=== PATIENT | female | born 1955 | race Caucasian/White ===

== ENCOUNTER 2024-07-01 13:47 | Emergency (ER) | payer MEDICARE, BC, SELFPAY ==
--- NOTE | ~2024-07-01 | CT_ITS ---
CLINICAL HISTORY: fall CT CERVICAL SPINE WITHOUT CONTRAST Comparison: None Findings: Minimal subluxation C4-5, likely degenerative. Otherwise, satisfactory alignment. Moderate disc space narrowing with endplate spurring C6-7. Mild disc degenerative changes in the remaining levels. Moderate multilevel facet degenerative changes. No acute fractures or dislocations. Please see separate report for CT head/brain. Nodular thyroid gland. Biapical scarring. No pneumothorax. IMPRESSION: No acute fracture in the cervical spine. This document has been electronically signed by: Melony Mueller DO on 07/01/2024 18:40:57
--- NOTE | ~2024-07-01 | XR_ITS ---
CLINICAL HISTORY: fall 1 view pelvis Comparison: None Findings: No acute fracture or dislocation. Differential lucency in the left intertrochanteric region is due to a skin fold. Mild narrowing of the bilateral acetabulofemoral joints. No femoral head osteonecrosis. Heterogeneous calcification in the pelvis may represent a small calcified uterine fibroid. IMPRESSION: No acute fracture or dislocation. This document has been electronically signed by: Melony Mueller DO on 07/01/2024 18:25:17
--- NOTE | ~2024-07-01 | XR_ITS ---
CLINICAL HISTORY: swelling, fall 3 view right ankle Comparison: None Findings: No acute fractures. Ankle mortise intact. No significant loss of joint space, osteophytes, or erosions. No ankle effusion. No radiopaque foreign body. IMPRESSION: No acute fracture or dislocation. This document has been electronically signed by: Melony Mueller DO on 07/01/2024 18:33:04
--- NOTE | ~2024-07-01 | XR_ITS ---
CLINICAL HISTORY: fall down stairs 4 view right knee Comparison: None Findings: There is a comminuted fracture in the upper to midpole of the patella with no significant displacement or posterior intra-articular extension. No dislocation. There are mild tricompartmental degenerative changes with no significant degenerative spurring. There is a suprapatellar joint effusion that measures 1.8 cm AP by 4.3 cm in length. No radiopaque foreign body. IMPRESSION: 1. Nondisplaced comminuted fracture in the patella associated with a small joint effusion. 2. No dislocation. This document has been electronically signed by: Melony Mueller DO on 07/01/2024 14:37:03
--- NOTE | ~2024-07-01 | XR_ITS ---
CLINICAL HISTORY: fall down stairs 3 view left elbow Comparison: None Findings: No acute fractures. Normal alignment. Very mild degenerative changes in the ulnohumeral joint. No joint effusion. No radiopaque foreign body. Mild triceps tendon enthesopathy with soft tissue swelling. IMPRESSION: No acute fracture or dislocation. This document has been electronically signed by: Melony Mueller DO on 07/01/2024 14:37:57
--- NOTE | ~2024-07-01 | CT_ITS ---
CLINICAL HISTORY: fall CT HEAD WITHOUT CONTRAST Comparison: None Findings: No acute intracranial hemorrhage, extra-axial fluid collection, hydrocephalus or midline shift. Age appropriate generalized parenchymal atrophy. There are periventricular and subcortical white matter hypodensities which are nonspecific but most likely related to microangiopathic gliosis. Nonspecific opacification of several bilateral ethmoid air cells. No frontal, maxillary or sphenoid air-fluid level. No mastoid fluid. Visualized orbits: No acute abnormalities. Bilateral aphakia. There is no acute fracture. IMPRESSION: 1. No acute intracranial hemorrhage. This document has been electronically signed by: Melony Mueller DO on 07/01/2024 18:36:52
--- NOTE | ~2024-07-01 | XR_ITS ---
CLINICAL HISTORY: fall 2 view right femur Comparison: None Findings: 4 films were obtained. No fractures or dislocations. [id number] knee effusion. No radiopaque foreign body. Several calcified injection granulomas. IMPRESSION: 1. No acute fracture in the right femur. 2. Known right patellar fracture. This document has been electronically signed by: Melony Mueller DO on 07/01/2024 18:27:19
[2024-07-01 13:52] VITALS: BP 153/69; PULSE 59; RESP 16; TEMP 36.6; O2SAT 100; BMI 24.0
--- NOTE | 2024-07-01 13:53 | ED_ITS ---
HPI - Fall General Chief Complaint: Fall Stated Complaint: fell down stairs Time Seen by Provider: 07/01/24 15:48 Source: patient, family and RN notes reviewed Mode of arrival: ambulatory Limitations: no limitations History of Present Illness ED Provider: Vivian Finney PA-C HPI Narrative: This is a 69-year-old female, with a history of hypertension and hyperlipidemia, who presents emergency department with complaints of right knee pain, and left elbow pain status post mechanical fall which occurred this morning. Patient states that she was rushing down the steps, and missed a stair and ultimately fell onto her right knee and left elbow onto hard tile floor. She denies hitting her head or LOC. She does admit feeling dizzy immediately following the incident which lasted for several minutes and resolved after drinking water. She did not lose consciousness. She was not dizzy prior to the fall. No chest pain or shortness of breath. No current dizziness, headaches, blurred vision, chest pain, shortness of breath, abdominal pain, nausea, vomiting or diarrhea. She reports she not been able to bear weight on her right leg secondary to the pain. This fall was unwitnessed, states that her was around the corner, and heard the sound, upon arrival, she was alert and oriented. No loss of consciousness. No other complaints or concerns at this time. MD complaint: fall Fall from: down stairs (#) (2) Fall witnessed: no Place fall occurred: home Loss of consciousness: none Prolonged down time: minute(s) Symptoms prior to fall: none Context: tripped/slipped Location of injury - extremities: left: elbow and right: knee Severity: moderate Quality: aching Associated symptoms (after fall): denies Related Data Previous Rx's ?Medication ?Instructions ?Recorded acetaminophen 500 mg tablet 1,000 mg (2 x 500 mg) PO Q8H #30 07/01/24 (Tylenol Extra Strength) tabs ibuprofen 600 mg tablet 600 mg PO Q6H PRN pain #30 tabs 07/01/24 oxycodone 5 mg tablet 5 mg PO Q6H PRN severe pain (scale 07/01/24 score 7-10) #10 tabs Allergies Allergy/AdvReac Type Severity Reaction Status Date / Time No Known Allergies Allergy Verified 07/01/24 13:56 Review of Systems Review of Systems: Yes all other systems are reviewed and are negative Constitutional: Constitutional: Reports as per [facility] Social History Social History Unable to assess alcohol history related to: Unknown Use of substances other than those prescribed or required for medical reasons: Unknown Advance Directives: No Advance Directives Information Provided: No Do you have a plan to hurt others: No Plan Physical Exam Vital Signs: Vital Signs: Last Vital Signs Temp 98 F 07/01/24 13:52 Pulse 59 07/01/24 13:52 Resp 16 07/01/24 13:52 BP 153/69 H 07/01/24 13:52 Pulse Ox 100 07/01/24 13:52 O2 Del Method Room Air 07/01/24 13:52 BMI result Body Mass Index 24.0 Const: General: cooperative, comfortable and no acute distress Orientation/consciousness: patient oriented x3 Limitations: no limitations HEENT: Head: Yes normal to inspection, Yes normocephalic and Yes atraumatic Ears: hearing grossly normal bilaterally General nose exam: Normal external nose present Face and sinus: Yes normal facial exam Mouth: Normal oral and palatal mucosa present, oropharynx normal and moist mucous membranes Throat: Yes posterior oropharynx normal Eyes: General: appearance normal, both eyes and all related structures Eyelids: Yes eyelids normal Conjunctivae: conjunctivae normal Sclerae: sclerae normal Pupils: Equal, round and reactive pupils present EOM: EOMs intact bilaterally Neck: Other: No midline spine tenderness on examination. No bony step-off or deformity. No cervical paraspinous muscles spasms. Neck: Yes normal visual inspection, Yes full ROM and Yes no lymphadenopathy Lymphatic: no lymphadenopathy noted Chest: Chest palpation & inspection: normal inspection of the chest Resp: Effort & Inspection: normal respiratory effort and able to speak in complete sentences Auscultation: clear to auscultation bilaterally, no crackles, no rales, no rhonchi and no wheezes Cardio: Rate: regular rate Rhythm: regular rhythm Heart sounds: S1 normal heart sound present and S2 normal heart sound present GI: Inspection: Yes normal to inspection Skin: General skin exam: no rashes or lesions noted Trauma: no lacerations or abrasions Wounds: no wounds Neuro: General: patient oriented x3 and moves all extremities Cranial nerves: Yes Equal, round and reactive pupils present Extrem: Other: Right knee, with moderate joint effusion noted, with exquisite tenderness palpation along the patella, ? Palpable deformity at the quadriceps tendon insertion site, tender in this region, unable to perform straight leg raise. Strong DP pulse. She does have moderate hematoma noted to the lateral aspect of the right dorsum of the foot, nontender. Unable to flex and extend at the right knee. No calf pain. Left elbow, with full range of motion, no obvious bony deformity or swelling, she does have tenderness palpation along epicondyle. No bony step-off or deformity. No open wounds or lacerations. Hip nontender, femur nontender, no open wounds or lacerations. General: Yes normal to inspection Right upper extremity: normal to inspection Left upper extremity: normal to inspection Left lower extremity: normal to inspection Course Course Course Narrative: This is a Rapid Medical Exam performed in triage by Nicole Licona PA-C. Full HPI, ROS and PE to be performed by primary ED provider. 69 yo F presenting to the ED c/o R knee & L elbow pain s/p mechanical slip & fall down a few stairs [employer]. States missed a step. denies head trauma, LOC, or AC use. ambulated w/difficulty PE: in wheelchair, + right knee with appreciable swelling and tenderness. Neurovascularly intact distally. Left elbow with mild tenderness. No deformity. Plan: XRs Reevaluation(s) Reevaluation #1: C-spine CT scan revealing no acute fracture of the cervical spine however there is minimal subluxation in the C4-C5, radiology reporting likely degenerative, she also has moderate disc space narrowing with end plate spurring at C6-C7, with mild disc degenerative changes in the remaining levels. I discussed this overall workup with my attending physician. He recommends reaching out to [facility] for neurosurgeon consult. Patient has no neck pain, no numbness or tingling, she is feeling well. We will continue to closely monitor. Contacted [facility] for further discussion. Time: 19:07 Reevaluation #2: Discussed case with neurosurgical PALuis Daniel. Discussed case, he also reviewed the images. This is likely degenerative given that patient is asymptomatic, not having any numbness tingling burning, or pain and neck. This does not require any follow-up or management. Discussed overall workup with patient and at bedside. Pain is well controlled however given car ride home, will medicate with oxycodone, she was placed in a knee immobilizer. Given strict return precautions. Patient understands and agrees with plan. Patient will follow-up with orthopedist on Wednesday. Patient stable for discharge. Time: 19:26 Medications Administered Discontinued Medications Generic Name Dose Route Start Last Admin Trade Name Robert PRN Reason Stop Dose Admin Oxycodone HCl 5 mg 07/01/24 16:08 07/01/24 16:22 Oxycodone Hcl Immed Release 5 Mg Tablet PO 07/01/24 16:09 5 mg ONCE ONE Administration Medical Decision Making Medical Decision Making [facility] Narrative: This is a 69-year-old female, with a history of hyperlipidemia, and hypertension, who presents emergency department with complaints of right knee pain, and left elbow pain status post mechanical fall which occurred this afternoon. On arrival, blood pressure mildly elevated 153/69, all other vital signs within normal limits. She is speaking in full sentences under no acute distress. No neurologic deficits on examination. She is not on anticoagulation. No LOC. No head strike. Right knee with moderate edema, with exquisite tenderness along the patella, question of palpable deformity at the insertion site of the quadriceps tendon, unable to straight leg raise. X-ray was performed prior to my assessment, she does have a nondisplaced patellar fracture. Left elbow unremarkable. X-ray no fracture seen. I discussed this case with orthopedic PA, Delroy Esteves, who came and assessed patient. He consulted with Dr. Monaco, who recommends placing patient in knee immobilizer, and close follow-up on Wednesday. X-rays of the pelvis, right ankle, right femur also ordered due to fall, she has no tenderness along these regions however given patellar fracture, will take to rule out any bony abnormalities. Given fall and patient is over the age of 65, will obtain CT head and neck to rule out any intracranial process. Differential Diagnosis Differential Diagnoses: The differential diagnosis associated with the presentation includes Fracture, contusion, sprain, strain, dislocation Consult Healthcare Provider Management of the patient was discussed with: Manager [employer] Delroy Esteves PA-C & Dr. Monaco, orthopedist Luis Daniel Zamarripa, [facility] neurosurg Radiology Impression Discussion of test interpretation with radiology: I have reviewed the radiologist's reading. Radiologist Impression: CLINICAL HISTORY: fall down stairs 4 view right knee Comparison: None Findings: There is a comminuted fracture in the upper to midpole of the patella with no significant displacement or posterior intra-articular extension. No dislocation. There are mild tricompartmental degenerative changes with no significant degenerative spurring. There is a suprapatellar joint effusion that measures 1.8 cm AP by 4.3 cm in length. No radiopaque foreign body. IMPRESSION: 1. Nondisplaced comminuted fracture in the patella associated with a small joint effusion. 2. No dislocation. This document has been electronically signed by: Melony Mueller DO on 07/01/2024 14:37:03 Dictated By: Melony Mueller MD CLINICAL HISTORY: fall down stairs 3 view left elbow Comparison: None Findings: No acute fractures. Normal alignment. Very mild degenerative changes in the ulnohumeral joint. No joint effusion. No radiopaque foreign body. Mild triceps tendon enthesopathy with soft tissue swelling. IMPRESSION: No acute fracture or dislocation. This document has been electronically signed by: Melony Mueller DO on 07/01/2024 14:37:57 Dictated By: Melony Mueller MD Findings: Minimal subluxation C4-5, likely degenerative. Otherwise, satisfactory alignment. Moderate disc space narrowing with endplate spurring C6-7. Mild disc degenerative changes in the remaining levels. Moderate multilevel facet degenerative changes. No acute fractures or dislocations. Please see separate report for CT head/brain. Nodular thyroid gland. Biapical scarring. No pneumothorax. IMPRESSION: No acute fracture in the cervical spine. This document has been electronically signed by: Melony Mueller DO on 07/01/2024 18:40:[address] [place] [id number] [address] Scan Report Signed Patient: Trina Calles MR#: [id number] : 1955 Acct:[id number] Age/Sex: 69 / F ADM Date: 07/01/24 Loc: HO.ED Attending Dr: Ordering Physician: Vivian Finney Date of Service: 07/01/24 Procedure(s): CT head/brain wo IV con Accession Number(s): [id number] cc: Vivian Finney; Denisse Brand [employer]~ Report Number: [id number]: Total DLP = 619.00 mGy-cm CLINICAL HISTORY: fall CT HEAD WITHOUT CONTRAST Comparison: None Findings: No acute intracranial hemorrhage, extra-axial fluid collection, hydrocephalus or midline shift. Age appropriate generalized parenchymal atrophy. There are periventricular and subcortical white matter hypodensities which are nonspecific but most likely related to microangiopathic gliosis. Nonspecific opacification of several bilateral ethmoid air cells. No frontal, maxillary or sphenoid air-fluid level. No mastoid fluid. Visualized orbits: No acute abnormalities. Bilateral aphakia. There is no acute fracture. IMPRESSION: 1. No acute intracranial hemorrhage. This document has been electronically signed by: Melony Mueller DO on 07/01/2024 18:36:52 Dictated By: Melony Mueller MD Independent Historian Clinical information obtained from an independent historian. History obtained from or confirmed by: Spouse Discharge Plan Discharge Clinical Impression: Patellar fracture, Contusion of elbow, Abnormal CT scan, cervical spine Patient Disposition: Home, Self-Care Instructions: Patellar Fracture (ED) Additional Instructions: You were seen in the emergency department due to a fall. Your x-ray of your right knee shows a patellar fracture. You were seen by the orthopedic PA in the department today, you will follow-up with them on Wednesday. Please call them on Wednesday morning to schedule this appointment. Rest, ice, elevate. Do not weight bear on your right leg. Use crutches. Alternate between ibuprofen and Tylenol as needed for pain. You may take oxycodone for severe pain only. Please be advised that this is an addictive medication, and can cause drowsiness, do not drink alcohol or drive while taking this medication. Also this may cause constipation. We can not refill this medication from the emergency room therefore you must follow-up with your primary care physician for further pain management. If any new or worsening symptoms occur including but not limited to severe pain, severe calf pain, chest pain, shortness of breath, severe neck pain, numbness tingling into your arms, please seek emergent care. Your left elbow does not have any bony abnormalities. Your CT scan of your C-spine revealed a C4-C5 subluxation, which was likely degenerative. This was discussed with [facility], who reviewed your images. Given you have no symptoms in your neck, this is likely arthritic, does not require any additional treatment or management. Prescriptions: New ibuprofen 600 mg tablet 600 mg PO Q6H PRN (Reason: pain) Qty: 30 0RF acetaminophen [Tylenol Extra Strength] 500 mg tablet 1,000 mg PO Q8H Qty: 30 0RF oxycodone 5 mg tablet 5 mg PO Q6H PRN (Reason: severe pain (scale score 7-10)) Qty: 10 0RF Rx Instructions: Partial Fill upon patient request. Referrals: [facility] [Provider Group] Print Language: Sinhala
[2024-07-01] MEDS: oxyCODONE HCl Immed Release 5 MG TABLET PO ×2 (16:22→19:31)
[2024-07-01 19:32] VITALS: BP 150/81; PULSE 59; RESP 16; TEMP 37.2; O2SAT 99
[2024-07-01 20:09] VITALS: BP 150/81; PULSE 59; RESP 16; TEMP 37.2; O2SAT 99
--- NOTE | 2024-07-02 08:46 | P.CONOP_ITS ---
History of Present Illness HPI Consult date: 07/01/24 Chief complaint: fell down stairs Narrative: Patient is a 69-year-old female who presents to the emergency department after a fall onto her right knee while going down some stairs. The patient reports that she was going downstairs to get something out of her refrigerator, slipped on carpeted stairs, and with down approximately 3-4 stairs landing on her right knee. The patient does report that she is also experiencing some very minor pain in her left elbow. The patient reports that her right knee immediately became very swollen and she was unable to bear weight. No other acute complaints or concerns at this time. Review of Systems Review of Systems: Yes all other systems are reviewed and are negative [facility] Social History Social History Unable to assess alcohol history related to: Unknown Use of substances other than those prescribed or required for medical reasons: Unknown Advance Directives: No Advance Directives Information Provided: No Do you have a plan to hurt others: No Plan Meds Allergies Allergy/AdvReac Type Severity Reaction Status Date / Time No Known Allergies Allergy Verified 07/01/24 13:56 Physical Exam Vital Signs: Vital Signs: Last Vital Signs Temp 98.9 F 07/01/24 20:09 Pulse 59 07/01/24 20:09 Resp 16 07/01/24 20:09 BP 150/81 H 07/01/24 20:09 Pulse Ox 99 07/01/24 20:09 O2 Del Method Room Air 07/01/24 20:09 BMI result Body Mass Index 24.0 Extrem: Other: Patient's R knee edematous to inspection No erythema or ecchymosis noted No lacerations, abrasions, open areas No evidence of infection Patient reports significant tenderness to palpation of the anterior knee and patella, minimal tenderness to distal patella No tenderness to palpation of the medial or lateral joint lines or posterior knee There may be a palpable deformity in the patient's quadriceps tendon, however unable to adequately assess today due to swelling Patient was unable to perform straight leg raise in the emergency room today due to pain Distal sensation intact Capillary refill brisk Results Labs Labs: All other labs normal. Assessment and Plan (1) Patellar fracture: Status: Acute Plan 1. Nondisplaced patella fracture right knee Date of injury 07/01/2024 Patient is educated about this injury Patient is educated about the typical recovery course Patient was discussed with both Dr. Monaco and Dr. Lyons, and a collaborative treatment plan was formed: At this time, patient is informed that there is no acute orthopedic intervention indicated for this fracture, and then she should follow-up with us closely on an outpatient basis this coming week Patient should be placed in a knee immobilizer for the time being Pain management per the ED Procedures Date of Service Date of Service: 07/02/24
== END 2024-07-01 20:10 | disposition home or self-care (01) ==
PROVIDERS: Emergency Provider Emergency Medicine Emergency Medical Services; PCP Nurse Practitioner Family
DX: S82.044A Nondisplaced comminuted fracture of right patella, initial encounter for closed fracture (principal); M25.461 Effusion, right knee; M25.561 Pain in right knee; M25.522 Pain in left elbow; I10 Essential (primary) hypertension; E78.5 Hyperlipidemia, unspecified; W10.8XXA Fall (on) (from) other stairs and steps, initial encounter; Y93.89 Activity, other specified; Y92.008 Other place in unspecified non-institutional (private) residence as the place of occurrence of the external cause; Y99.9 Unspecified external cause status
CPT/HCPCS: 70450; 72125; 72170; 73080; 73552; 73562; 73610; 99284

== ENCOUNTER → 2024-07-01 13:57 | Outpatient (BNV) | payer MEDICARE, SELFPAY | PROVIDERS: PCP Nurse Practitioner Family; Visit Provider Radiology Diagnostic Radiology | DX: S82.044A Nondisplaced comminuted fracture of right patella, initial encounter for closed fracture (principal); Z03.89 Encounter for observation for other suspected diseases and conditions ruled out; M25.471 Effusion, right ankle; M25.552 Pain in left hip | CPT/HCPCS: 70450; 72125; 72170; 73080; 73552; 73562; 73610 ==

== ENCOUNTER → 2024-07-01 15:52 | Outpatient (BNV) | payer MEDICARE, BC, SELFPAY | PROVIDERS: Emergency Provider Emergency Medicine Emergency Medical Services; PCP Nurse Practitioner Family | DX: S82.009A Unspecified fracture of unspecified patella, initial encounter for closed fracture (principal) | CPT/HCPCS: 99283 ==

== ENCOUNTER 2024-07-03 10:08 | Outpatient (REF) | payer MEDICARE, BC, SELFPAY ==
--- NOTE | ~2024-07-03 | XR_ITS ---
EXAMINATION: XR KNEE 1-2 VIEWS RIGHT HISTORY: M17.11 - Unilateral primary osteoarthritis, right knee COMPARISON: Albert is made with the prior examination dated 07/01/2024. FINDINGS: AP and lateral views of the right knee are submitted. Osseous mineralization is normal. Again seen is a nondisplaced fracture of the patella fracture line remains visible. The joint spaces are preserved. There is a small joint effusion. Calcification adjacent to the medial femoral condyle is unchanged and may be ligamentous in nature. XR/XR knee RT 2V IMPRESSION: Nondisplaced fracture of the patella without significant change given differences in technique. Electronically signed by: Naga Krause MD 07/06/2024 08:05 AM RIRI
== END 2024-07-03 10:09 | disposition home or self-care (01) ==
LOC: HO.HOSX 10:08
DX: S82.001A Unspecified fracture of right patella, initial encounter for closed fracture (principal)
CPT/HCPCS: 73560; 99212

== ENCOUNTER 2024-07-03 12:53 | Outpatient (AMB) | payer MEDICARE, BC, SELFPAY ==
--- NOTE | 2024-07-03 13:18 | A.OFFVIS_ITS ---
Vital Signs 07/03/24 13:26 Height 5 ft 4 in Weight 140 lb BMI 24.0 Intake Visit Reasons: FC-Nondisplaced patella f/x RT knee DOI-07/01/24 Intake Note: Trina is a 69 year old female who presents today with a knee immobilizor for a evaluation of her right knee injury, DOI 07/01/24. Patient reports while she was going down some stair to get something out of her pantry, she slipped on carpeted stairs. Which lead her fall down approximately 2 stairs landing on her right knee. Patient is still feeling some pain and it has gotten a bit better. Patient has taken Tylenol to help with the pain. Allergies No Known Allergies Allergy (Verified 07/03/24 13:23) HPI HPI FC-Nondisplaced patella f/x RT knee DOI-07/01/24: Details: Trina is a 69 year old female who presents today with a knee immobilizor for a evaluation of her right knee injury, DOI 07/01/24. Patient reports while she was going down some stair to get something out of her pantry, she slipped on carpeted stairs. Patient fell and struck her right knee Patient was in the emergency department, where x-rays were taken and revealed nondisplaced patella fracture of the right knee. Patient is still feeling some pain and it has gotten a bit better. Patient has taken Tylenol to help with the pain. No other acute complaints or concerns at this time. [facility] Social History (Updated 07/03/24 @ 13:25 by Gemma Wilson) Alcohol intake: current Alcohol intake frequency: holidays/special occasions only Patient Tobacco Use Status: Never used Tobacco Current occupational status: retired Review of Systems Const All systems reviewed & are unremarkable except as noted in HPI and below Physical Exam Vital Signs: BMI result Body Mass Index 24.0 Extrem Other: Patient's R knee edematous to inspection No erythema, ecchymosis noted No lacerations, abrasions, open areas No evidence of infection Patient reports tenderness to palpation of the proximal aspect of the patella No tenderness to palpation of the tibial tubercle, medial and lateral joint lines, or posterior knee Knee held in extension Patient is able to straight leg raise the right knee off of the ground No palpable deformity of the patient's quadriceps tendon Distal sensation intact Capillary refill brisk Results Reviewed Results Reviewed: X-rays obtained in the office today and independently reviewed by me, Delroy Esteves PA-C, demonstrate minimally displaced fracture of the right patella with increased displacement from previous x-rays taken in the emergency department. Assessment & Plan Assessment & Plan (1) Patellar fracture: Code(s): S82.009A - Unspecified fracture of unspecified patella, initial encounter for closed fracture Category: Medical Plan 1. Minimally displaced patella fracture of the right knee Date of injury 07/01/2024 Patient is educated about this injury Patient is educated about the typical recovery course At this time, patient is removed from the knee immobilizer provided to her in the emergency department and placed into a locking hinged knee brace locked in extension Patient is educated she should wear this brace like a cast and not remove it Patient is educated that any active flexion of the right knee could lead to displacement of the fracture and the need for surgery Patient states understanding of this Patient will follow-up in 1 week with repeat x-rays, sooner with any acute concerns Medications: Discontinued oxycodone Partial Fill upon patient request. Discontinued Reason: Patient no longer taking 5 mg PO Q6H PRN 10 tabs 0RF severe pain (scale score 7-10) Coding Level of Care Code New Pt Level 3 (59276) Diagnoses Patellar fracture S82.009A
[2024-07-03 13:26] VITALS: BMI 24.0
== END 2024-07-03 15:16 | disposition home or self-care (01) ==
PROVIDERS: PCP Nurse Practitioner Family
DX: S82.009A Unspecified fracture of unspecified patella, initial encounter for closed fracture (principal)
CPT/HCPCS: 99213

== ENCOUNTER 2024-07-10 11:41 | Outpatient (REF) | payer MEDICARE, BC, SELFPAY ==
--- NOTE | ~2024-07-10 | XR_ITS ---
EXAMINATION: XR KNEE 1-2 VIEWS RIGHT HISTORY: M25.561 - Pain in right knee COMPARISON: Comparison is made with the prior examination dated 07/03/2024. FINDINGS: AP and lateral views of the right knee are submitted. Osseous mineralization is normal. Again seen is a fracture of the patella. There is slight cortical offset involving the articular surface of the patella on the lateral view which may be projectional related to differences in patient positioning. The joint spaces are preserved. Again seen is a soft tissue calcification adjacent to the medial femoral condyle which may be ligamentous in nature. XR/XR knee RT 2V IMPRESSION: Fracture of the patella with new slight cortical offset along the articular surface, which may be projectional in nature. Electronically signed by: Naga Krause MD 07/12/2024 03:29 PM RIRI
== END 2024-07-10 11:42 | disposition home or self-care (01) ==
LOC: HO.HOSX 11:41
PROVIDERS: Visit Provider Orthopaedic Surgery
DX: M25.561 Pain in right knee (principal); S82.002D Unspecified fracture of left patella, subsequent encounter for closed fracture with routine healing
CPT/HCPCS: 73560; 99212

== ENCOUNTER 2024-07-10 12:29 | Outpatient (AMB) | payer MEDICARE, BC, SELFPAY ==
--- NOTE | 2024-07-10 12:37 | MHC.OFFVIS ---
Intake Visit Reasons: OV - right Nondisplaced patella fx, DOI 07/01/24 Intake Note: Trina is a 69 year old female who presents today for a follow up of her Right Patella Fx DOI 07/01/24. While going down carpeted stairs she slipped and landed on the right knee. She was last seen with Delroy who placed her in a hinged knee brace, to be locked in extension and worn like a cast. She remains WBAT with crutches. Patient reports that she is doing well, she has been compliant with bracing and ROM restrictions. She has had only mild pain which is being managed with Tylenol. Allergies No Known Allergies Allergy (Verified 07/03/24 13:23) HPI HPI OV - right Nondisplaced patella fx, DOI 07/01/24: Details: Almost 10 days status post patella fracture. She has been using a knee immobilizer and comes in today for tolerate. [facility] Social History (Updated 07/03/24 @ 13:25 by Gemma Wilson) Alcohol intake: current Alcohol intake frequency: holidays/special occasions only Patient Tobacco Use Status: Never used Tobacco Current occupational status: retired Physical Exam Extrem Other: No changes in pain left patella. Skin clean dry and intact. Knee brace in place and locked in extension. Results Reviewed Results Reviewed: I personally reviewed relevant radiographs. Unchanged alignment minimally displaced transverse patella fracture Assessment & Plan Assessment & Plan (1) Patellar fracture: Code(s): S82.009A - Unspecified fracture of unspecified patella, initial encounter for closed fracture Category: Medical Plan: No change in alignment patella fracture. Follow up 1 week for repeat radiographs. Continue knee immobilization. May weightbear with knee brace locked in extension Coding Level of Care Code Est Pt Level 3 (86502) Diagnoses Patellar fracture S82.009A
== END 2024-07-10 13:11 | disposition home or self-care (01) ==
LOC: HO.HOS 12:29
PROVIDERS: Visit Provider Orthopaedic Surgery
DX: S82.009A Unspecified fracture of unspecified patella, initial encounter for closed fracture (principal)
CPT/HCPCS: 99213

== ENCOUNTER 2024-07-17 14:07 | Outpatient (AMB) | payer MEDICARE, BC, SELFPAY ==
--- NOTE | 2024-07-17 14:27 | MHC.OFFVIS ---
Vital Signs 07/17/24 14:28 Height 5 ft 4 in Weight 140 lb BMI 24.0 Intake Visit Reasons: OV - right Nondisplaced patella fx, DOI 07/01/24 Intake Note: Trina is a 69 year old female who presents today for a follow up of her right knee injury, DOI 07/01/24. At her last visit on 07/10/[address] Lyons she was advised to continue knee immobilization and may bear weight with knee brace locked in extension. States she is managing her pain well and is doing well. Knee brace was adjusted in office as per patient request. Allergies No Known Allergies Allergy (Verified 07/17/24 14:28) HPI HPI OV - right Nondisplaced patella fx, DOI 07/01/24: Details: Trina is a 69 year old female who presents today for a follow up of her right knee injury, DOI 07/01/24. At her last visit on 07/10/[address] Lyons she was advised to continue knee immobilization and may bear weight with knee brace locked in extension. States she is managing her pain well and is doing well. Knee brace was adjusted in office as per patient request. [facility] Social History Alcohol intake: current Alcohol intake frequency: holidays/special occasions only Patient Tobacco Use Status: Never used Tobacco Current occupational status: retired Review of Systems Const All systems reviewed & are unremarkable except as noted in HPI and below Physical Exam Vital Signs: BMI result Body Mass Index 24.0 Extrem Other: Patient's R knee not edematous to inspection No erythema, ecchymosis noted No lacerations, abrasions, open areas No evidence of infection Patient reports minimal tenderness to palpation of the proximal aspect of the patella No tenderness to palpation of the tibial tubercle, medial and lateral joint lines, or posterior knee Knee held in extension Patient is able to straight leg raise the right knee off of the ground No palpable deformity of the patient's quadriceps tendon Distal sensation intact Capillary refill brisk Results Reviewed Results Reviewed: X-rays obtained in the office today and independently reviewed by me, Delroy Esteves PA-C, demonstrate minimally displaced fracture of the right patella with unchanged displacement from previous x-rays taken in the emergency department. Assessment & Plan Assessment & Plan (1) Patellar fracture: Code(s): S82.009A - Unspecified fracture of unspecified patella, initial encounter for closed fracture Category: Medical Plan: No change in alignment patella fracture. Follow up 2 weeks for repeat radiographs. Continue knee immobilization. October weightbear with knee brace locked in extension Orders: Orders XR knee RT 2V Today M25.569 - Pain in unspecified knee Coding Level of Care Code Global (38870) Diagnoses Patellar fracture S82.009A
[2024-07-17 14:28] VITALS: BMI 24.0
== END 2024-07-17 14:50 | disposition home or self-care (01) ==
DX: S82.001A Unspecified fracture of right patella, initial encounter for closed fracture (principal); Z48.89 Encounter for other specified surgical aftercare
CPT/HCPCS: 99213

== ENCOUNTER 2024-07-31 09:25 | Outpatient (REF) | payer MEDICARE, BC, SELFPAY ==
--- NOTE | ~2024-07-31 | XR_ITS ---
EXAMINATION: XR KNEE 1-2 VIEWS RIGHT HISTORY: M25.569 - Pain in unspecified knee COMPARISON: Comparison is made with the prior examination dated 07/17/2024. FINDINGS: AP and lateral views of the right knee are submitted. Osseous mineralization is normal. Again seen is a fracture of the patella mildly displaced. The fracture line remains visible. The joint spaces are preserved. There is no joint effusion. XR/XR knee RT 2V IMPRESSION: Mildly displaced fracture of the patella without change. Electronically signed by: Naga Krause MD 07/31/2024 03:43 PM EST
== END 2024-07-31 09:26 | disposition home or self-care (01) ==
LOC: HO.HOSX 09:25
DX: M25.561 Pain in right knee (principal); S82.001A Unspecified fracture of right patella, initial encounter for closed fracture
CPT/HCPCS: 73560; 99212

== ENCOUNTER 2024-07-31 09:55 | Outpatient (AMB) | payer MEDICARE, BC, SELFPAY ==
[2024-07-31 10:07] VITALS: BMI 24.0
--- NOTE | 2024-07-31 10:07 | MHC.OFFVIS ---
Vital Signs 07/31/24 10:07 Height 5 ft 4 in Weight 140 lb BMI 24.0 Intake Visit Reasons: OV-right Nondisplaced patella fx, DOI 07/01/24 Intake Note: Trina is a 69 year old female who presents today for a follow up of her right knee fracture, DOI 07/01/24. States she has no pain and has continued to wear knee brace as directed. Xrays updated in office. Allergies No Known Allergies Allergy (Verified 07/31/24 10:13) HPI HPI OV-right Nondisplaced patella fx, DOI 07/01/24: Details: Trina is a 69 year old female who presents today for a follow up of her right knee injury, DOI 07/01/24. Patient has continued with knee immobilization with the knee locked in extension.. States she is managing her pain well and is doing well. Knee brace was adjusted in office as per patient request. ON LICENSE OF [facility] Social History Alcohol intake: current Alcohol intake frequency: holidays/special occasions only Patient Tobacco Use Status: Never used Tobacco Current occupational status: retired Review of Systems Const All systems reviewed & are unremarkable except as noted in HPI and below Physical Exam Vital Signs: BMI result Body Mass Index 24.0 Extrem Other: Patient's R knee not edematous to inspection No erythema, ecchymosis noted No lacerations, abrasions, open areas No evidence of infection Patient reports minimal tenderness to palpation of the proximal aspect of the patella No tenderness to palpation of the tibial tubercle, medial and lateral joint lines, or posterior knee Knee held in extension Patient is able to straight leg raise the right knee off of the ground No palpable deformity of the patient's quadriceps tendon Distal sensation intact Capillary refill brisk Results Reviewed Results Reviewed: X-rays obtained in the office today and independently reviewed by me, Delroy Esteves PA-C, demonstrate minimally displaced fracture of the right patella with unchanged displacement from previous x-rays. Assessment & Plan Assessment & Plan (1) Patellar fracture: Code(s): S82.009A - Unspecified fracture of unspecified patella, initial encounter for closed fracture Category: Medical Plan: No change in alignment patella fracture. Follow up 2 weeks for repeat radiographs. Continue knee immobilization. May weightbear with knee brace locked in extension Orders: Orders XR knee RT 2V 07/31/24 M25.569 - Pain in unspecified knee Coding Level of Care Code Est Pt Level 3 (31988) Diagnoses Patellar fracture S82.009A
== END 2024-07-31 10:20 | disposition home or self-care (01) ==
DX: S82.001A Unspecified fracture of right patella, initial encounter for closed fracture (principal)
CPT/HCPCS: 99213

== ENCOUNTER → 2024-07-31 09:55 | Outpatient (BNV) | payer MEDICARE, BC, SELFPAY | PROVIDERS: Visit Provider Radiology Diagnostic Radiology | DX: M25.561 Pain in right knee (principal) | CPT/HCPCS: 73560 ==

== ENCOUNTER 2024-08-21 09:39 | Outpatient (REF) | payer MEDICARE, BC, SELFPAY ==
--- NOTE | ~2024-08-21 | XR_ITS ---
EXAMINATION: XR KNEE, RIGHT CLINICAL INFORMATION: M25.569 - Pain in unspecified knee COMPARISON: Numerous priors, most recently 07/31/2024, and dating back to 07/01/2024. TECHNIQUE: Two views of the right knee. FINDINGS: Redemonstration of minimally displaced mid waist patellar fracture. There is been mild blunting of the fracture margins, with increasing sclerosis, although no gross bony callus formation. Findings indicate early healing. No additional fractures. Medial and lateral compartment joint spaces are preserved. Trace joint effusion persists. Improved ventral soft tissue swelling. XR/XR knee RT 2V IMPRESSION: 1. Healing mid patellar waist fracture without change in alignment. Electronically signed by: Drew Blount MD 08/22/2024 01:49 PM RIRI HANNA
--- OUTSIDE RECORDS SUMMARY | 2024-08-21 10:34 | XMS_ITS | Patient Health Record ---
Author Organization [facility] Address [address] [place] [id number] Care Team Providers Care Transportation Planner Name Role Phone GASTON PEREZ Primary Care Provider ALLERGIES No Known Allergies REASON FOR REFERRAL No Information MEDICATIONS Medication SIG (Take, Route, Frequency, Duration) Notes Start Date End Date Status Airborne - as directed Orally Active Fish Oil Active Multi For Her 50+ - as directed Orally Active Atorvastatin Calcium 20 MG 1 tablet Orally Once a day for 90 days 10/19/2023 Active Calcium Magnesium Zinc 333-133-5 MG 1 tablet with meals Orally Three times a day Active CoQ-10 100 MG 1 cap Orally once a day for 90 days 10/19/2023 Active Estradiol 0.1 MG/GM apply 1 gram to vulvovaginal area once daily for 14 days, then decrease frequency to 3x/week Vaginal twice a week for 90 days estradioL 0.01% (0.1 mg/gram) vaginal cream 03/09/2022 Active Valsartan 320 MG TAKE 1 TABLET BY MOUTH DAILY IN THE EVENING for 90 Active Alendronate Sodium 70 MG TAKE 1 TABLET BY MOUTH DIRECTED ONCE WEEKLY. for 84 Active Vitamin D3 50 MCG (1999 UT) 1 capsule Orally Once a day Not-Taking IMMUNIZATIONS Vaccine Route Administration Date Status Comme nts Influenza, unspecified formulation Unknown 03/09/2023 A dministered PROBLEMS Problem Type ICD Code Onset Dates Problem Status W/U Status Risk SNOMED Code Notes Problem Essential (primary) hypertension (I10) Active confirmed Essential hypertension (85482244) Problem Elevated Lipoprotein(a) (E78.41) Active confirmed Lipoprotein abo ve reference range (finding) (904194435) Problem Familial hypercholesteremia (E78.01) Active confirmed Pure hypercholesterolemia (228033741) VITAL SIGNS Height-cm 165.10 cm 10/19/2023 Height 65 in 10/19/2023 Encounters Encounter Location Date Provider Diagnosis [facility] [address], [place] [phone] 03/14/2024 GASTON [facility] [address], [place] [phone] 10/19/2023 GASTON PEREZ Familial hypercholesteremia E78.01 ; Essential (primary) hypertension I10 ; Elevated Lipoprotein(a) E78.41 ; Systemic inflammatory response syndrome (SIRS) of non-infectious origin without acute organ dysfunction R65.10 and Always tired R53.83 [facility] [address], [place] [phone] 10/04/2023 GASTON [facility] [address], [place] [id number] 11/12/2023 GASTON [facility] hypercholesteremia E78.01 ASSESSMENTS Encounter Date Diagnosis Assessment Notes Treatment Notes Treatment Clinical Notes Section Notes 10/19/2023 Familial hypercholesteremia (ICD-10 - E78.01) Shared decision making, to start statin therapy COQ10 as well Continue healthy lifestyle Low fat, low cholesterol mediterranean diet Exercise Will check lipid levels in 4-6 mo 11/12/2023 Familial hypercholesteremia (ICD-10 - E78.01) 10/19/2023 Essential (primary) hypertension (ICD-10 - I10) Condition is stable and well controlled on current treatment. No changes made, medication(s) refilled as indicated 10/19/2023 Elevated Lipoprotein(a) (ICD-10 - E78.41) see above 10/19/2023 Systemic inflammator y response syndrome (SIRS) of non-infectious origin without acute organ dysfunction (ICD-10 - R65.10) 10/19/2023 Always tired (ICD-10 - R53.83) 10/19/2023 Other Total time spen t with patient 20 minutes which includes face to face visit, education and coordination of care. PLAN OF TREATMENT Pending Test Test Name Order Date X ray : Foot, right 11/02/2022 MAMMOGRAM, SCREENING 03/10/2023 THYROID PEROXIDASE AND THYROGLOBULIN ANT IBODIES (5976) 10/19/2023 THYROID PANEL WITH TSH (9444) 10/19/2023 LIPID PANEL WITH REFLEX TO DIRECT LDL (1 8930) 10/19/2023 COMPREHENSIVE METABOLIC PANEL (68477) URIC ACID (905) 10/19/2023 CBC (H/H, RBC, INDICES, WBC, PLT) (1759) 10/19/2023 HS CRP (35862) 10/19/2023 HEMOGLOBIN A1c (496) 10/19/2023 APOLIPOPROTEIN B (5224) 10/19/2023 INSULIN (561) 10/19/2023 VITAMIN D,25-OH,TOTAL,IA (75820) 024 T3 REVERSE, LC/MS/MS (17654) 10/19/2023 APOLIPOPROTEIN A1 04/13/2023 APOLIPOPROTEIN B 04/13/2023 LIPID PANEL, REFLEX TO DIRECT LDL 2022 Insurance Providers Payer Name Payer Address Payer Phone Subscriber Number Group Number Insured Name Patient Relationship to Insured Coverage Start Date Coverage End Date Medicare [address] [place] [address] [id number] ÁLVARO ARVIZU Self - patient is the insured [employer] [facility] [address] [place] [address] [id number] ÁLVRAO ARVIZU Self - patient is the insured MEDICAL (GENERAL) HISTORY Medical History History ICD Code Hypertension Allergic Rhinitis Migraine Sciatica Basal Cell Carcinoma Arthritis Surgical History Surgery Date(Month/Year) Cataract Surgery [phone] x 2
--- OUTSIDE RECORDS SUMMARY | 2024-08-21 10:34 | XMS_ITS ---
Author Organization [facility] Address [address], [place] [phone] Care Team Providers Care Final Installer Inspector Name Role Phone GASTON PEREZ Primary Care Provider [phone] REASON FOR VISIT Refill MEDICATIONS Medication SIG (Take, Route, Frequency, Duration) Notes Start Date End Date Status Atorvastatin Calcium 20 MG 1 tablet Oral ly Once a day for 90 days 10/19/2023 Active Encounters Encounter Location Date Provider Diagnosis [address] [id number] 11/12/2023 GASTON PEREZ Familial hypercholesteremia E78.01 ASSESSMENTS Encounter Date Diagnosis Assessment Notes Treatment Notes Treatment Clinical Notes Section Notes 11/12/2023 Familial hypercholesteremia (ICD-10 - E78.01) PLAN OF TREATMENT Medication Medication Name Sig Start Date Stop Date Notes Atorvastatin Calcium 20 MG 1 tablet Oral ly Once a day for 90 days 10/19/2023 Progress Notes * ÁLVARO ARVIZU ODOB:[birth year] (68 yo F)Acc No.[id number]:11/12/2023 Patient:??ÁLVARO ARVIZU :1955?Age:68 Y?Sex:Fe male Phone: Address:[address] [place] [id number] * Refills?? Refill Atorvastatin Calcium Tablet, 20 MG, Orally, 90, 1 tablet, Once a day, 90 days, Refills=3 * true * Date:??
== END 2024-08-21 09:40 | disposition home or self-care (01) ==
LOC: HO.HOSX 09:39
DX: S82.002D Unspecified fracture of left patella, subsequent encounter for closed fracture with routine healing (principal); M25.569 Pain in unspecified knee
CPT/HCPCS: 73560; 99212

== ENCOUNTER 2024-08-21 11:06 | Outpatient (AMB) | payer MEDICARE, BC, SELFPAY ==
[2024-08-21 11:16] VITALS: BMI 24.0
--- NOTE | 2024-08-21 11:16 | MHC.OFFVIS ---
Vital Signs 08/21/24 11:16 Height 5 ft 4 in Weight 140 lb BMI 24.0 Intake Visit Reasons: OV-Right Patella Fx 07/01/24 - w/ XR Intake Note: Trina is a 69 year old female who presents today for a follow up of her Right Patella Fracture DOI 07/01/24. At her last visit she was advised that she may begin weight bearing as tolerated with brace locked in extension. States her knee pain has improved states due to the way sjhe is walking she is now having pain in her lower back when laying, sitting and walking. Allergies No Known Allergies Allergy (Verified 08/21/24 11:21) HPI HPI OV-Right Patella Fx 07/01/24 - w/ XR: Details: Trina is a 69 year old female who presents today for a follow up of her Right Patella Fracture DOI 07/01/24. At her last visit she was advised that she may begin weight bearing as tolerated with brace locked in extension. States her knee pain has improved states due to the way sjhe is walking she is now having pain in her lower back when laying, sitting and walking. [facility] Social History Alcohol intake: current Alcohol intake frequency: holidays/special occasions only Patient Tobacco Use Status: Never used Tobacco Current occupational status: retired Review of Systems Const All systems reviewed & are unremarkable except as noted in HPI and below Physical Exam Vital Signs: BMI result Body Mass Index 24.0 Extrem Other: Patient's R knee not edematous to inspection No erythema, ecchymosis noted No lacerations, abrasions, open areas No evidence of infection Patient reports no tenderness to palpation of the patella No tenderness to palpation of the tibial tubercle, medial and lateral joint lines, or posterior knee Knee held in extension Patient is able to straight leg raise the right knee off of the ground No palpable deformity of the patient's quadriceps tendon Distal sensation intact Capillary refill brisk Results Reviewed Results Reviewed: X-rays obtained in the office today and independently reviewed by me, Delroy Esteves PA-C, demonstrate minimally displaced fracture of the right patella with unchanged displacement from previous x-rays and evidence of interval bony healing. Assessment & Plan Assessment & Plan (1) Patellar fracture: Code(s): S82.009A - Unspecified fracture of unspecified patella, initial encounter for closed fracture Category: Medical Plan 1. Right patella fracture Date of injury 07/01/2024 Case was discussed with Dr. Lyons, who did not see the patient with me in clinic today, and a collaborative treatment plan was formed: At this time, patient was informed that she can begin to work on gentle range of motion of the right knee while she is nonweightbearing Patient was educated that for the time being, she should still have the knee locked in extension in the brace whenever weight-bearing Patient is amenable to this plan Patient was referred to PT for work on gradual increasing range of motion of the right knee while nonweightbearing Patient will follow-up in 6 weeks with repeat x-rays for reassessment, sooner with any acute concerns Orders: Orders XR knee RT 2V Today M25.569 - Pain in unspecified knee PT Evaluation and Treatment Today S82.009A - Unspecified fracture of unspecified patella, initial encounter for closed fracture Coding Level of Care Code Global (51738) Diagnoses Patellar fracture S82.009A
--- OUTSIDE RECORDS SUMMARY | 2024-08-21 12:47 | XMS_ITS ---
Author Organization [facility] Address [address] [place] [id number] Care Team Providers Care Traffic Analysis Technician Name Role Phone GASTON MARTINEZ Primary Care Provider [phone] REASON FOR VISIT cpe Encounters Encounter Location Date Provider Diagnosis [address] [phone] 03/14/2024 GASTON MARTINEZ PLAN OF TREATMENT No Information Progress Notes * ÁLVARO ARVIZU ODOB:[birth year] (69 yo F)Acc No.[id number]:03/14/2024 Progress Note Patient:??ÁLVARO ARVIZU Provider:??Gaston Martinez DNP :1955?Age:69 Y?Sex:Fe male Date:03/14/2024 Phone: Address:[address] [place], [place] [phone] Subjective: * Chief Complaints: * ?1. Cpe. * Medical History:?? Objective: Assessment: Plan: * Treatment: Care Plan: * Problems:?? * Billing Information: * Visit Code:?? * Procedure Codes:?? * Sign off status: Pending * Provider:??Gaston Martinez DNP Date:??0 03/14/2024
--- OUTSIDE RECORDS SUMMARY | 2024-08-21 12:47 | XMS_ITS ---
Author Organization [facility], [facility] Address [address] [place] [id number] Care Team Providers Care Back Panel Padder Name Role Phone GASTON MARTINEZ Primary Care Provider [phone] ALLERGIES No Known Allergies REASON FOR VISIT F/U LABS MEDICATIONS Medication SIG (Take, Route, Frequency, Duration) Notes Start Date End Date Status Airborne - as directed Orally Active Fish Oil Active Calcium Magnesium Zinc 333-133-5 MG 1 tablet with meals Orally Three times a day Active Estradiol 0.1 MG/GM apply 1 gram to vulvovaginal area once daily for 14 days, then decrease frequency to 3x/week Vaginal twice a week for 90 days estradioL 0.01% (0.1 mg/gram) vaginal cream 03/09/2022 Active Valsartan 320 MG TAKE 1 TABLET BY MOUTH DAILY IN THE EVENING for 90 Active Atorvastatin Calcium 20 MG 1 tablet Orally Once a day for 30 days 10/19/2023 Active Multi For Her 50+ - as directed Orally Active CoQ-10 100 MG 1 cap Orally once a day for 90 days 10/19/2023 Active Alendronate Sodium 70 MG TAKE 1 TABLET BY MOUTH DIRECTED ONCE WEEKLY. for 84 Active Vitamin D3 50 MCG (1999 UT) 1 capsule Orally Once a day Not-Taking PROBLEMS Problem Type ICD Code Onset Dates Problem Status W/U Status Risk SNOMED Code Notes Problem Familial hypercholesteremia (E78.01) Active confirmed Pure hypercholesterolemia (225308529) VITAL SIGNS Height 65 in 10/19/2023 Height-cm 165.10 cm 10/19/2023 Encounters Encounter Location Date Provider Diagnosis [facility], [address] [id number] 10/19/2023 GASTON MARTINEZ Familial hypercholesteremia E78.01 ; Essential (primary) hypertension I10 ; Elevated Lipoprotein(a) E78.41 ; Systemic inflammatory response syndrome (SIRS) of non-infectious origin without acute organ dysfunction R65.10 and Always tired R53.83 ASSESSMENTS Encounter Date Diagnosis Assessment Notes Treatment Notes Treatment Clinical Notes Section Notes 10/19/2023 Familial hypercholesteremia (ICD-10 - E78.01) Shared decision making, to start statin therapy COQ10 as well Continue healthy lifestyle Low fat, low cholesterol mediterranean diet Exercise Will check lipid levels in 4-6 mo 10/19/2023 Essential (primary) hypertension (ICD-10 - I10) [...] and coordination of care. PLAN OF TREATMENT Medication Medication Name Sig Start Date Stop Date Notes Atorvastatin Calcium 20 MG 1 tablet Oral ly Once a day for 30 days 10/19/2023 CoQ-10 100 MG 1 cap Orally once a day for 90 days 10/19/2023 Treatment Notes Assessment Notes Familial hypercholesteremia Shared decision making, to start statin therapy COQ10 as well Continue healthy lifestyle Low fat, low cholesterol mediterranean diet Exercise Will check lipid levels in 4-6 mo Essential (primary) hypertension Conditi on is stable and well controlled on current treatment. No changes made, medication(s) refilled as indicated Elevated Lipoprotein(a) see above Other Total time spent wit h patient 20 minutes which includes face to face visit, education and coordination of care. Pending Test Test Name Order Date THYROID PEROXIDASE AND THYROGLOBULIN ANT IBODIES (2405) 10/19/2023 THYROID PANEL WITH TSH (0144) 10/19/2023 LIPID PANEL WITH REFLEX TO DIRECT LDL (1 1723) 10/19/2023 COMPREHENSIVE METABOLIC PANEL (28078) URIC ACID (905) 10/19/2023 CBC (H/H, RBC, INDICES, WBC, PLT) (1759) 10/19/2023 HS CRP (83429) 10/19/2023 HEMOGLOBIN A1c (496) 10/19/2023 APOLIPOPROTEIN B (2124) 10/19/2023 INSULIN (561) 10/19/2023 VITAMIN D,25-OH,TOTAL,IA (83138) 024 T3 REVERSE, LC/MS/MS (98928) 10/19/2023 Next Appt Details Follow Up: already booked fo r CPE, Reason: Progress Notes * ÁLVARO ARVIZU ODOB:[birth year] (68 yo F)Acc No.[id number]:10/19/2023 Progress Note Patient:??ÁLVARO ARVIZU O Provider:??Gaston Martinez DNP :1955?Age:68 Y?Sex:Fe male Date:10/19/2023 Phone: Address:[address] [place] [address] Subjective: * Chief Complaints: * ?F/U LABS * HPI: ?Patient Care Team:?Political Science Professor:??[facility] in [place].?Interventional Physician:??Jonathon Max MD.? Providers/Specialists: Asbestos Shingle Inspector - Magalis Larsen ?FOOTBALL COACH- Dr. Krause. ?Visit info:? Álvaro presents today, via Telehealth, for f/u review of lab results. ?She notes she started taking supplement in March for Cholesterol - Annatto. * ROS:?all systems reviewed and are non-contributory unless specified in the HPI. * Medical History:?? 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 - Normal.?Last mammogram date??2021 Mammogram - Normal.?? * OB History:? History:?Total pregnancies:??2 ?Full-term pregnancies:??2 * Surgical History:??Cataract Surgery [id number] x 2 * Hospitalization/Major Diagno stic Procedure:?? * Family History:??Father: dec eased 60 yrs, Kidney Disease, Melanoma, Heart Disease.??Mother: alive, Breast CA.?? * Social History:?Migrated Social History:?Migrated Social History: Smoking Status:Never smoker, [SNOMED-CT:[id number]],. ?Drugs/Alcohol:?Do you drink alcohol?: Yes, Socially. ?Lives in [place], [place] with . * Medications:??TakingMulti Fo r Her 50+ - Tablet as directed Orally Calcium Magnesium Zinc 333-133-5 MG Tablet 1 tablet with meals Orally Three times a day Airborne - Tablet Chewable as directed Orally Fish Oil Estradiol 0.1 MG/GM Cream apply 1 gram to vulvovaginal area once daily for 14 days, then decrease frequency to 3x/week Vaginal twice a week , Notes to Pharmacist: estradioL 0.01% (0.1 mg/gram) vaginal creamValsartan 320 MG Tablet TAKE 1 TABLET BY MOUTH DAILY IN THE EVENING Alendronate Sodium 70 MG Tablet TAKE 1 TABLET BY MOUTH DIRECTED ONCE WEEKLY. Taking Multi For Her 50+ - Tablet as directed Orally Taking Calcium Magnesium Zinc 333-133-5 MG Tablet 1 tablet with meals Orally Three times a day Taking Airborne - Tablet Chewable as directed Orally Taking Fish Oil Taking Estradiol 0.1 MG/GM Cream apply 1 gram to vulvovaginal area once daily for 14 days, then decrease frequency to 3x/week Vaginal twice a week , Notes to Pharmacist: estradioL 0.01% (0.1 mg/gram) vaginal creamTaking Valsartan 320 MG Tablet TAKE 1 TABLET BY MOUTH DAILY IN THE EVENING Taking Alendronate Sodium 70 MG Tablet TAKE 1 TABLET BY MOUTH DIRECTED ONCE WEEKLY. Not-TakingVitamin D3 50 MCG (2000 UT) Capsule 1 capsule Orally Once a day Medication List reviewed and reconciled with the patientNot-Taking Vitamin D3 50 MCG (2000 UT) Capsule 1 capsule Orally Once a day Medication List reviewed and reconciled with the patient * Allergies:??N.K.D.A.no[Aller gies Verified] Objective: * Vitals:??BP: Not Taken - Tel ehealth, Ht: 65 in, Ht-cm: 165.10 cm. * Physical Examination:?GEN: NAD, speaking in full complete sentences, thoughts clear and appropriate ?RESP: nonlabored breathing, no audible SOB/Wheezing ?NEURO: AO x 3 ?PSYCH: judgment/insight intact, NL mood/affect. Assessment: * Assessment: 1.??Familial hypercholestere hans - E78.01 (Primary)??2.??Essential (primary) hypertension - I10??3.??Elevated Lipoprotein(a) - E78.41??4.??Systemic inflammatory response syndrome (SIRS) of non-infectious origin without acute organ dysfunction - R65.10??5.??Always tired - R53.83?? Plan: * Treatment: 2.??Essential (primary) hype rtension?LAB: THYROID PEROXIDASE AND THYROGLOBULIN ANTIBODIES (0160) ?LAB: THYROID PANEL WITH TSH (7444) ?LAB: LIPID PANEL WITH REFLEX TO DIRECT LDL (09266) ?LAB: COMPREHENSIVE METABOLIC PANEL (18926) ?LAB: URIC ACID (905) ?LAB: CBC (H/H, RBC, INDICES, WBC, PLT) (1759) ?LAB: HS CRP (25064) ?LAB: HEMOGLOBIN A1c (496) ?LAB: APOLIPOPROTEIN B (5224) ?LAB: INSULIN (561) ?LAB: VITAMIN D,25-OH,TOTAL,IA (05791) ?LAB: T3 REVERSE, LC/MS/MS (84158) Notes: Condition is stable and well controlled on current treatment. No changes made, medication(s) refilled as indicated? 3.??Elevated Lipoprotein(a)?LAB: THYROID PEROXIDASE AND THYROGLOBULIN ANTIBODIES (7260) ?LAB: THYROID PANEL WITH TSH (7444) ?LAB: LIPID PANEL WITH REFLEX TO DIRECT LDL (18286) ?LAB: COMPREHENSIVE METABOLIC PANEL (13761) ?LAB: URIC ACID (905) ?LAB: CBC (H/H, RBC, INDICES, WBC, PLT) (1759) ?LAB: HS CRP (94705) ?LAB: HEMOGLOBIN A1c (496) ?LAB: APOLIPOPROTEIN B (5224) ?LAB: INSULIN (561) ?LAB: VITAMIN D,25-OH,TOTAL,IA (31755) ?LAB: T3 REVERSE, LC/MS/MS (15518) Notes: see above? 4.??Systemic inflammatory re sponse syndrome (SIRS) of non-infectious origin without acute organ dysfunction?LAB: THYROID PEROXIDASE AND THYROGLOBULIN ANTIBODIES (7260) ?LAB: THYROID PANEL WITH TSH (7444) ?LAB: LIPID PANEL WITH REFLEX TO DIRECT LDL (81169) ?LAB: COMPREHENSIVE METABOLIC PANEL (03722) ?LAB: URIC ACID (905) ?LAB: CBC (H/H, RBC, INDICES, WBC, PLT) (1759) ?LAB: HS CRP (61083) ?LAB: HEMOGLOBIN A1c (496) ?LAB: APOLIPOPROTEIN B (5224) ?LAB: INSULIN (561) ?LAB: VITAMIN D,25-OH,TOTAL,IA (38724) ?LAB: T3 REVERSE, LC/MS/MS (08024) 5.??Always tired?LAB: THYROID PEROXIDASE AND THYROGLOBULIN ANTIBODIES (6616) ?LAB: THYROID PANEL WITH TSH (0249) ?LAB: LIPID PANEL WITH REFLEX TO DIRECT LDL (23136) ?LAB: COMPREHENSIVE METABOLIC PANEL (22433) ?LAB: URIC ACID (905) ?LAB: CBC (H/H, RBC, INDICES, WBC, PLT) (1759) ?LAB: HS CRP (04731) ?LAB: HEMOGLOBIN A1c (496) ?LAB: APOLIPOPROTEIN B (5224) ?LAB: INSULIN (561) ?LAB: VITAMIN D,25-OH,TOTAL,IA (86418) ?LAB: T3 REVERSE, LC/MS/MS (48907) 6.??Others?? Notes: Total time spent with patient 20 minutes which includes face to face visit, education and coordination of care.? * Procedure Codes:?? * Preventive Medicine:?Last CPE: 2020 ?DEXA: 2021, Osteopenia ?Last Colonoscopy: 6 years ago-10 yr call back ?Covid/Booster: Yes & 3 boosters ?Flu shot: Feb per pt ?Shingles Vac: Yes, both Zostavax & Shingrix ?Pneumonia Vac: over 5 yrs ago per pt. * Follow Up:??already booked f or CPE * Billing Information: * Visit Code:?? 25293 Office Visit, Est Pt., Level 3. * Procedure Codes:?? * Sign off status: Completed true * Provider:??Gaston Martinez DNP Date:??0 10/19/2023 History and Physical Notes * HPI (History of Present Illness) Category Sub-Category Detail Notes Category Not es Patient Care Team Political Science Professor: [facility] [place] Providers/Speciali sts: Asbestos Shingle Inspector - Magalis Larsen FOOTBALL COACH- Dr. Krause Interventional Physician: Jonathon Max MD Physical Examination Category Sub-Category Detail Notes Section Note s GEN: NAD, speaking in full complete sentences, thoughts clear and appropriate RESP: nonlabored breathing, no audible SOB/Wheezing NEURO: AO x 3 PSYCH: judgment/insight intact, NL mood/affect
--- OUTSIDE RECORDS SUMMARY | 2024-08-21 12:47 | XMS_ITS | Patient Health Record ---
Author Organization [facility] Address [address] [place] [address] Care Team Providers Care Nuclear Plant Construction Worker Name Role Phone Chitra Martinez Primary Care Provider UnavailMagalis Bolton Unavailable [phone] Allergies No Known Allergies Reason For Referral No Information Medications Medication SIG (Take, Route, Frequency, Duration) Notes Start Date End Date Status Multivitamin Adults 50+ Active Ventolin HFA Active Vitamin D3 1000 UNIT Orally Not-Taking Estrace 0.1 MG/GM Vaginal No t-Taking Valsartan 320 MG 1 tablet Orally Once a day Active Alendronate Sodium 70 MG Orally Active Calcium + D Active Fish Oil 500 MG Orally Acti ve Irbesartan 150 MG Orally Ac tive Immunizations Vaccine Route Administration Date Status Comme nts COVID-19 Pfizer BioNTech Vaccine Unknown 09/16/2020 Administered Second Dose: Social History Tobacco Use: Social History Observation Description Date Details (start date - stop date) Never Smoker NA - NA Tobacco Use/Smoking Question Answer Notes Are you a: nonsmoker Alcohol Screen Question Answer Notes Did you have a drink containing alcohol in the p ast year? Yes Points 0 Interpretation Negative Tobacco use other than smoking: Question Answer Notes Are you an other tobacco user? No Problems Problem Type SNOMED Code ICD Code Onset Dates Problem Status W/U Status Risk Notes Problem Plantar wart (00646099) Plantar wart (B07.0) Active confirmed Plan Of Treatment Pending Test Test Name Order Date 51003-Sgjq Destruction, -09/16/2015 15281-Gmyj Destruction, -03/09/2018 34964-Vqms Destruction, -03/30/2018 Insurance Providers Payer Name Payer Address Payer Phone Subscriber Number Group Number Insured Name Patient Relationship to Insured Coverage Start Date Coverage End Date Medicare National Govt S[employer] [address] [place] [address] [id number] Trina Calles Self - patient is the insured [facility] [address] [place] [address] [id number] Trina Calles Self - patient is the insured Medical (General) History Medical History History ICD Code High blood pressure Chicken pox Basal cell carcinoma Surgical History Surgery Date(Month/Year) section 1986 catarac surgery both eyes 04/16, 07/18
== END 2024-08-21 11:47 | disposition home or self-care (01) ==
DX: S82.001A Unspecified fracture of right patella, initial encounter for closed fracture (principal)
CPT/HCPCS: 99213

== ENCOUNTER → 2024-08-21 11:08 | Outpatient (BNV) | payer MEDICARE, BC, SELFPAY | PROVIDERS: Visit Provider Radiology Diagnostic Radiology | DX: M25.561 Pain in right knee (principal) | CPT/HCPCS: 73560 ==

== ENCOUNTER 2024-09-25 08:51 | Outpatient (REF) | payer MEDICARE, BC, SELFPAY ==
--- NOTE | ~2024-09-25 | XR_ITS ---
EXAMINATION: XR KNEE, RIGHT CLINICAL INFORMATION: M25.569 - Pain in unspecified knee COMPARISON: August 21, 2024. TECHNIQUE: 2 views of the right knee. FINDINGS: There is an irregular shaped Lázaro oriented sclerotic marginated lucency through the mid aspect of the patella. There is no callus formation. The femoral condyles tibial plateau and proximal fibula are intact. Normal alignment. No suprapatellar bursa joint effusion. XR/XR knee RT 2V IMPRESSION: Nonunion fracture, right patella. Electronically signed by: Sean Barrett MD 09/26/2024 01:38 PM EDT
--- OUTSIDE RECORDS SUMMARY | 2024-09-26 09:25 | XMS_ITS ---
Author Organization [facility] Address [address] [place] [phone] Care Team Providers Care Washer Machine Name Role Phone GASTON MARTINEZ Primary Care [...] Familial hypercholesteremia (E78.01) Active confirmed Pure hypercholesterolemia (232898083) VITAL SIGNS Height 65 in 10/19/2023 Height-cm 165.10 cm 10/19/2023 Encounters Encounter Location Date [facility] [address] [phone] 10/19/2023 GASTON MARTINEZ Familial hypercholesteremia E78.01 ; [...] Date THYROID PEROXIDASE AND THYROGLOBULIN ANT IBODIES (0773) 10/19/2023 THYROID PANEL WITH TSH (1244) 10/19/2023 LIPID PANEL WITH REFLEX TO DIRECT LDL (1 0054) 10/19/2023 COMPREHENSIVE METABOLIC PANEL (24666) URIC ACID (905) 10/19/2023 CBC (H/H, RBC, INDICES, WBC, PLT) (1759) 10/19/2023 HS CRP (58163) 10/19/2023 HEMOGLOBIN A1c (496) 10/19/2023 APOLIPOPROTEIN B (8224) 10/19/2023 INSULIN (561) 10/19/2023 VITAMIN D,25-OH,TOTAL,IA (86891) 024 T3 REVERSE, LC/MS/MS (27514) 10/19/2023 Next Appt Details Follow Up: already booked fo r CPE, Reason: Progress Notes * ÁLVARO ARVIZU ODOB:[birth year] (68 yo F)Acc No.[id number]:10/19/2023 Progress Note Patient:??ÁLVARO ARVIZU O Provider:??Gaston Martinez DNP :1955?Age:68 Y?Sex:Fe male Date:10/19/2023 Phone: Address:[address] [place] [address] Subjective: * Chief Complaints: * ?F/U LABS * HPI: ?Patient Care Team:?Electronic Parts Designer:??[facility] in [place].?Manager Human Capital:??Jonathon Max MD.? Providers/Specialists: Agricultural Appraiser - Magalis Larsen ?BOILER SETTER- Dr. Krause. ?Visit info:? Álvaro presents today, via Telehealth, for f/u review of lab results. ?She notes she started taking supplement in March for Cholesterol - Annatto. * ROS:?all systems reviewed and are non-contributory unless specified in the HPI. * Medical History:?? * Senior Dot Net Developer History:?Menstrual history: ?Age of Menarche:??12 ?Age of Menopause:??58 ?Abnormal pap smear??2021 - Did not get enough cells to really test. - Normal.?Last mammogram date??2021 Mammogram - Normal.?? * OB History:? History:?Total pregnancies:??2 ?Full-term pregnancies:??2 * Surgical History:??Cataract Surgery [id number]-Hoxaadm x 2 * Hospitalization/Major Diagno stic Procedure:?? * Family History:??Father: dec eased 60 yrs, Kidney Disease, Melanoma, Heart Disease.??Mother: alive, Breast CA.?? * Social History:?Migrated Social History:?Migrated Social History: Smoking Status:Never smoker, [SNOMED-CT:523322982],. ?Drugs/Alcohol:?Do you drink alcohol?: Yes, Socially. ?Lives in [place], [place] with . * Medications:??TakingMulti Fo r [...] hype rtension?LAB: THYROID PEROXIDASE AND THYROGLOBULIN ANTIBODIES (9060) ?LAB: THYROID PANEL WITH TSH (7444) ?LAB: LIPID PANEL WITH REFLEX TO DIRECT LDL (49207) ?LAB: COMPREHENSIVE METABOLIC PANEL (76738) ?LAB: URIC ACID (905) ?LAB: CBC (H/H, RBC, INDICES, WBC, PLT) (1759) ?LAB: HS CRP (06808) ?LAB: HEMOGLOBIN A1c (496) ?LAB: APOLIPOPROTEIN B (5224) ?LAB: INSULIN (561) ?LAB: VITAMIN D,25-OH,TOTAL,IA (34833) ?LAB: T3 REVERSE, LC/MS/MS (00263) Notes: Condition is stable and well controlled on current treatment. No changes made, medication(s) refilled as indicated? 3.??Elevated Lipoprotein(a)?LAB: THYROID PEROXIDASE AND THYROGLOBULIN ANTIBODIES (7260) ?LAB: THYROID PANEL WITH TSH (7444) ?LAB: LIPID PANEL WITH REFLEX TO DIRECT LDL (34476) ?LAB: COMPREHENSIVE METABOLIC PANEL (86721) ?LAB: URIC ACID (905) ?LAB: CBC (H/H, RBC, INDICES, WBC, PLT) (1759) ?LAB: HS CRP (50658) ?LAB: HEMOGLOBIN A1c (496) ?LAB: APOLIPOPROTEIN B (5224) ?LAB: INSULIN (561) ?LAB: VITAMIN D,25-OH,TOTAL,IA (66008) ?LAB: T3 REVERSE, LC/MS/MS (94349) Notes: see above? 4.??Systemic inflammatory re sponse syndrome (SIRS) of non-infectious origin without acute organ dysfunction?LAB: THYROID PEROXIDASE AND THYROGLOBULIN ANTIBODIES (7260) ?LAB: THYROID PANEL WITH TSH (7444) ?LAB: LIPID PANEL WITH REFLEX TO DIRECT LDL (37500) ?LAB: COMPREHENSIVE METABOLIC PANEL (06409) ?LAB: URIC ACID (905) ?LAB: CBC (H/H, RBC, INDICES, WBC, PLT) (1759) ?LAB: HS CRP (62288) ?LAB: HEMOGLOBIN A1c (496) ?LAB: APOLIPOPROTEIN B (5224) ?LAB: INSULIN (561) ?LAB: VITAMIN D,25-OH,TOTAL,IA (89202) ?LAB: T3 REVERSE, LC/MS/MS (16395) 5.??Always tired?LAB: THYROID PEROXIDASE AND THYROGLOBULIN ANTIBODIES (3007) ?LAB: THYROID PANEL WITH TSH (3225) ?LAB: LIPID PANEL WITH REFLEX TO DIRECT LDL (85000) ?LAB: COMPREHENSIVE METABOLIC PANEL (64174) ?LAB: URIC ACID (905) ?LAB: CBC (H/H, RBC, INDICES, WBC, PLT) (1759) ?LAB: HS CRP (39125) ?LAB: HEMOGLOBIN A1c (496) ?LAB: APOLIPOPROTEIN B (5224) ?LAB: INSULIN (561) ?LAB: VITAMIN D,25-OH,TOTAL,IA (51612) ?LAB: T3 REVERSE, LC/MS/MS (24266) 6.??Others?? Notes: Total time spent with patient [...] CPE * Billing Information: * Visit Code:?? 47937 Office Visit, Est Pt., Level 3. * Procedure Codes:?? * Sign off status: Completed true * Provider:??Gaston Martinez DNP Date:??0 10/19/2023 History and Physical Notes * HPI (History of Present Illness) Category Sub-Category Detail Notes Category Not es Patient Care Team Electronic Parts Designer: [facility] [place] Providers/Speciali sts: Agricultural Appraiser - Magalis Larsen BOILER SETTER- Dr. Krause Manager Human Capital: Jonathon Max MD Physical Examination Category Sub-Category Detail Notes Section Note s GEN: NAD, speaking in full complete sentences, thoughts clear and appropriate RESP: nonlabored breathing, no audible SOB/Wheezing NEURO: AO x 3 PSYCH: judgment/insight intact, NL mood/affect
--- OUTSIDE RECORDS SUMMARY | 2024-09-26 09:25 | XMS_ITS ---
Author Organization [facility] Address [address], [place] [phone] Care Team Providers Care Supervisor Accounting Clerks Name Role Phone GASTON PEREZ Primary Care Provider REASON FOR VISIT Refill MEDICATIONS Medication SIG (Take, Route, Frequency, Duration) Notes Start Date End Date Status Atorvastatin Calcium 20 MG 1 tablet Oral ly Once a day for 90 days 10/19/2023 Active Encounters Encounter Location Date Provider Diagnosis [address] [phone] 11/12/2023 GASTON PEREZ Familial hypercholesteremia E78.01 ASSESSMENTS Encounter Date Diagnosis Assessment Notes Treatment Notes Treatment Clinical Notes Section Notes 11/12/2023 Familial hypercholesteremia (ICD-10 - E78.01) PLAN OF TREATMENT Medication Medication Name Sig Start Date Stop Date Notes Atorvastatin Calcium 20 MG 1 tablet Oral ly Once a day for 90 days 10/19/2023 Progress Notes * ÁLVARO ARVIZU ODOB:[birth year] (68 yo F)Acc No.[id number]:11/12/2023 Patient:??ÁLVARO ARVIZU :1955?Age:68 Y?Sex:Fe male Phone: Address:[address] [place] [id number] * Refills?? Refill Atorvastatin Calcium Tablet, 20 MG, Orally, 90, 1 tablet, Once a day, 90 days, Refills=3 * true * Date:??
--- OUTSIDE RECORDS SUMMARY | 2024-09-26 09:25 | XMS_ITS ---
Author Organization [facility] Address [address] [place] [phone] Care Team Providers Care Director Of Enterprise Strategy Name Role Phone GASTON MARTINEZ Primary Care Provider [phone] REASON FOR VISIT cpe Encounters Encounter Location Date Provider Diagnosis [address] [phone] 03/14/2024 GASTON MARTINEZ PLAN OF TREATMENT No Information Progress Notes * ÁLVARO ARVIZU ODOB:[birth year] (69 yo F)Acc No.[id number]:03/14/2024 Progress Note Patient:??ÁLVARO ARVIZU Provider:??Gaston Martinez DNP :1955?Age:69 Y?Sex:Fe male Date:03/14/2024 Phone: Address:[address] [place], [place] [phone] Subjective: * Chief Complaints: * ?1. Cpe. * Medical History:?? Objective: Assessment: Plan: * Treatment: Care Plan: * Problems:?? * Billing Information: * Visit Code:?? * Procedure Codes:?? * Sign off status: Pending * Provider:??Gaston Martinez DNP Date:??0 03/14/2024
--- OUTSIDE RECORDS SUMMARY | 2024-09-26 09:25 | XMS_ITS | Patient Health Record ---
Author Organization [facility] Address [address] [place] [phone] Care Team Providers Care General Cargo Clerk Name Role Phone GASTON PEREZ Primary Care Provider [phone] ALLERGIES No Known Allergies REASON FOR REFERRAL [...] (primary) hypertension (I10) Active confirmed Essential hypertension (29261124) Problem Elevated Lipoprotein(a) (E78.41) Active confirmed Lipoprotein abo ve reference range (finding) (450085714) Problem Familial hypercholesteremia (E78.01) Active confirmed Pure hypercholesterolemia (373553049) VITAL SIGNS Height-cm 165.10 cm 10/19/2023 Height 65 in 10/19/2023 Encounters Encounter Location Date Provider Diagnosis [facility] [address] [place], [place] [phone] 03/14/2024 GASTON [facility] [address], [place] [phone] 10/19/2023 GASTON PEREZ Familial hypercholesteremia E78.01 ; Essential (primary) hypertension I10 ; Elevated Lipoprotein(a) E78.41 ; Systemic inflammatory response syndrome (SIRS) of non-infectious origin without acute organ dysfunction R65.10 and Always tired R53.83 [facility] [address], [place] [phone] 10/04/2023 GASTON [facility] [address], [place] [phone] 11/12/2023 GASTON Watson hypercholesteremia E78.01 ASSESSMENTS Encounter [...] 03/10/2023 THYROID PEROXIDASE AND THYROGLOBULIN ANT IBODIES (4113) 10/19/2023 THYROID PANEL WITH TSH (1444) 10/19/2023 LIPID PANEL WITH REFLEX TO DIRECT LDL (1 8366) 10/19/2023 COMPREHENSIVE METABOLIC PANEL (64815) URIC ACID (905) 10/19/2023 CBC (H/H, RBC, INDICES, WBC, PLT) (1759) 10/19/2023 HS CRP (40213) 10/19/2023 HEMOGLOBIN A1c (496) 10/19/2023 APOLIPOPROTEIN B (5224) 10/19/2023 INSULIN (561) 10/19/2023 VITAMIN D,25-OH,TOTAL,IA (23269) 024 T3 REVERSE, LC/MS/MS (19439) 10/19/2023 APOLIPOPROTEIN A1 04/13/2023 APOLIPOPROTEIN B 04/13/2023 LIPID PANEL, REFLEX TO DIRECT LDL 2022 Insurance Providers Payer Name Payer Address Payer Phone Subscriber Number Group Number Insured Name Patient Relationship to Insured Coverage Start Date Coverage End Date Medicare [address] [place] [address] [id number] ÁLVARO ARVIZU Self - patient is the insured [employer] [facility] [address] [place] [address] [id number] ÁLVARO ARVIZU Self - patient is the insured MEDICAL (GENERAL) HISTORY Medical History History ICD Code Hypertension Allergic Rhinitis Migraine Sciatica Basal Cell Carcinoma Arthritis Surgical History Surgery Date(Month/Year) Cataract Surgery 2399-2912 x 2
--- OUTSIDE RECORDS SUMMARY | 2024-09-26 09:25 | XMS_ITS | Patient Health Record ---
Author Organization [facility] Address [address] [facility] [place] [address] Care Team Providers Care Knife Operator Name Role Phone Chitra Martinez Primary Care Provider UnavailMagalis Bolton Unavailable [phone] Allergies No Known Allergies Reason For Referral [...] W/U Status Risk Notes Problem Plantar wart (55693914) Plantar wart (B07.0) Active confirmed Plan Of Treatment Pending Test Test Name Order Date 29989-Dvus Destruction, -09/16/2015 95882-Wfkn Destruction, -03/09/2018 45252-Bviq Destruction, -03/30/2018 Insurance Providers Payer Name Payer Address Payer Phone Subscriber Number Group Number Insured Name Patient Relationship to Insured Coverage Start Date Coverage End Date Medicare [employer] [address] [place] [address] [id number] Trina Calles Self - patient is the insured [facility] [address] [place] [address] [id number] Trina Calles Self - patient is the insured Medical (General) History Medical History History ICD Code High blood pressure Chicken pox Basal cell carcinoma Surgical History Surgery Date(Month/Year) section 1986 catarac surgery both eyes 04/16, 07/18
== END 2024-09-25 08:52 | disposition home or self-care (01) ==
LOC: HO.HOSX 08:51
DX: M25.561 Pain in right knee (principal); S82.001A Unspecified fracture of right patella, initial encounter for closed fracture; X58.XXXA Exposure to other specified factors, initial encounter; Y93.9 Activity, unspecified; Y92.9 Unspecified place or not applicable; Y99.9 Unspecified external cause status
CPT/HCPCS: 73560; 99212

== ENCOUNTER 2024-09-25 10:22 | Outpatient (AMB) | payer MEDICARE, BC, SELFPAY ==
[2024-09-25 10:33] VITALS: BMI 24.0
--- NOTE | 2024-09-25 10:33 | A.OFFVIS_ITS ---
Vital Signs 09/25/24 10:33 Height 5 ft 4 in Weight 140 lb BMI 24.0 Intake Visit Reasons: OV-Right Patella Fx 07/01/24 Intake Note: Trina is a 69 year old female who presents today for a follow up of her right patella fracture, DOI: 07/01/24. STates she is attending P.T and is improving. She is working on her ROM. States she only has some soreness but no pain. She has D/C pain medication. Allergies No Known Allergies Allergy (Verified 09/25/24 10:37) HPI HPI OV-Right Patella Fx 07/01/24: Details: Trina is a 69 year old female who presents today for a follow up of her right patella fracture, DOI: 07/01/24. STates she is attending P.T and is improving. She is working on her ROM. States she only has some soreness but no pain. She has D/C pain medication. Patient reports that she could flex the right knee to approximately 82 degrees at last physical therapy visit, and that her range of motion has improved significantly. [facility] Social History Alcohol intake: current Alcohol intake frequency: holidays/special occasions only Patient Tobacco Use Status: Never used Tobacco Current occupational status: retired Review of Systems Const All systems reviewed & are unremarkable except as noted in HPI and below Physical Exam Vital Signs: BMI result Body Mass Index 24.0 Extrem Other: Patient's R knee not edematous to inspection No erythema, ecchymosis noted No lacerations, abrasions, open areas No evidence of infection Patient reports no tenderness to palpation of the patella No tenderness to palpation of the tibial tubercle, medial and lateral joint lines, or posterior knee Patient was able to flex the knee to approximately 70 degrees in the office toda y Patient is able to straight leg raise the right knee off of the ground No palpable deformity of the patient's quadriceps tendon Distal sensation intact Capillary refill brisk Results Reviewed Results Reviewed: X-rays obtained in the office today and independently reviewed by me, Delroy Esteves PA-C, demonstrate minimally displaced fracture of the right patella with unchanged displacement from previous x-rays and evidence of good interval bony healing. Assessment & Plan Assessment & Plan (1) Patellar fracture: Code(s): S82.009A - Unspecified fracture of unspecified patella, initial encounter for closed fracture Category: Medical Plan 1. Right patella fracture Date of injury 07/01/2024 Case was discussed with Dr. Lyons, who did not see the patient with me in clinic today, and a collaborative treatment plan was formed: At this time, patient was informed that she can begin to weight bear without being in extension, and should continue working range of motion of her right knee Patient was educated that she no longer requires bracing, but can wear the brace unlocked if it helps her to feel more stable in the short term Patient is amenable to this plan Patient was referred to PT for work on gradual increasing range of motion of the right knee, gait training Patient will follow-up in 6-8 weeks with repeat x-rays for reassessment, sooner with any acute concerns Orders: Orders XR knee RT 2V Today M25.569 - Pain in unspecified knee Coding Level of Care Code Global (94852) Diagnoses Patellar fracture S82.009A
--- OUTSIDE RECORDS SUMMARY | 2024-09-25 11:35 | XMS_ITS | Patient Health Record ---
Author Organization [facility] Address [address] [address] Care Team Providers Care Inbound Sales Consultant Name Role Phone Chitra Martinez Primary Care Provider UnavailMagalis Bolton Unavailable [phone] Allergies No Known Allergies Reason For Referral [...] W/U Status Risk Notes Problem Plantar wart (89254156) Plantar wart (B07.0) Active confirmed Plan Of Treatment Pending Test Test Name Order Date 19212-Qbzy Destruction, -09/16/2015 44119-Fqwz Destruction, -03/09/2018 65979-Qiyq Destruction, -03/30/2018 Insurance Providers Payer Name Payer Address Payer Phone Subscriber Number Group Number Insured Name Patient Relationship to Insured Coverage Start Date Coverage End Date Medicare National Govt Svcs [employer] [address] [place] [address] [id number] Trina Calles Self - patient is the insured [facility] [address] [place] [address] [id number] Trina Calles Self - patient is the insured Medical (General) History Medical History History ICD Code High blood pressure Chicken pox Basal cell carcinoma Surgical History Surgery Date(Month/Year) section 1986 catarac surgery both eyes 04/16, 07/18
--- OUTSIDE RECORDS SUMMARY | 2024-09-25 11:35 | XMS_ITS ---
Author Organization [facility] Address [address] [place] [phone] Care Team Providers Care Student Loan Counselor Name Role Phone GASTON MARTINEZ Primary Care Provider REASON FOR VISIT cpe Encounters Encounter Location Date Provider Diagnosis [address] [id number] 03/14/2024 GASTON MARTINEZ PLAN OF TREATMENT No Information Progress Notes * ÁLVARO ARVIZU ODOB:[birth year] (69 yo F)Acc No.[id number]:03/14/2024 Progress Note Patient:??ÁLVARO ARVIZU Provider:??Gaston Martinez DNP :1955?Age:69 Y?Sex:Fe male Date:03/14/2024 Phone: Address:[address] [place], [place] [phone] Subjective: * Chief Complaints: * ?1. Cpe. * Medical History:?? Objective: Assessment: Plan: * Treatment: Care Plan: * Problems:?? * Billing Information: * Visit Code:?? * Procedure Codes:?? * Sign off status: Pending * Provider:??Gaston Martinez DNP Date:??0 03/14/2024
--- OUTSIDE RECORDS SUMMARY | 2024-09-25 11:35 | XMS_ITS ---
Author Organization [facility] Address [address], [place] [id number] Care Team Providers Care Operations Lieutenant Name Role Phone GASTON PEREZ Primary Care Provider [phone] REASON FOR VISIT Refill MEDICATIONS Medication SIG (Take, Route, Frequency, Duration) Notes Start Date End Date Status Atorvastatin Calcium 20 MG 1 tablet Oral ly Once a day for 90 days 10/19/2023 Active Encounters Encounter Location Date Provider Diagnosis [address] [id number] 11/12/2023 GASTON PEREZ Familial hypercholesteremia E78.01 ASSESSMENTS Encounter Date Diagnosis Assessment Notes Treatment Notes Treatment Clinical Notes Section Notes 11/12/2023 Familial hypercholesteremia (ICD-10 - E78.01) PLAN OF TREATMENT Medication Medication Name Sig Start Date Stop Date Notes Atorvastatin Calcium 20 MG 1 tablet Oral ly Once a day for 90 days 10/19/2023 Progress Notes * ÁLVARO ARVIZU ODOB:[birth year] (68 yo F)Acc No.[id number]:11/12/2023 Patient:??ÁLVARO ARVIZU :1955?Age:68 Y?Sex:Fe male Phone: Address:[address] [place] [id number] * Refills?? Refill Atorvastatin Calcium Tablet, 20 MG, Orally, 90, 1 tablet, Once a day, 90 days, Refills=3 * true * Date:??
--- OUTSIDE RECORDS SUMMARY | 2024-09-25 11:36 | XMS_ITS ---
Author Organization [facility], [facility] Address [address] [place] [address] [id number] Care Team Providers Care Cytopathologist Name Role Phone GASTON MARTINEZ Primary Care Provider ALLERGIES No Known Allergies REASON FOR VISIT [...] Familial hypercholesteremia (E78.01) Active confirmed Pure hypercholesterolemia (036279129) VITAL SIGNS Height 65 in 10/19/2023 Height-cm 165.10 cm 10/19/2023 Encounters Encounter Location Date [facility] [address] [id number] 10/19/2023 GASTON MARTINEZ Familial hypercholesteremia E78.01 ; [...] Date THYROID PEROXIDASE AND THYROGLOBULIN ANT IBODIES (9551) 10/19/2023 THYROID PANEL WITH TSH (3844) 10/19/2023 LIPID PANEL WITH REFLEX TO DIRECT LDL (1 1625) 10/19/2023 COMPREHENSIVE METABOLIC PANEL (51333) URIC ACID (905) 10/19/2023 CBC (H/H, RBC, INDICES, WBC, PLT) (1759) 10/19/2023 HS CRP (76487) 10/19/2023 HEMOGLOBIN A1c (496) 10/19/2023 APOLIPOPROTEIN B (7724) 10/19/2023 INSULIN (561) 10/19/2023 VITAMIN D,25-OH,TOTAL,IA (83151) 024 T3 REVERSE, LC/MS/MS (79052) 10/19/2023 Next Appt Details Follow Up: already booked fo r CPE, Reason: Progress Notes * ÁLVARO ARVIZU ODOB:[birth year] (68 yo F)Acc No.[id number]:10/19/2023 Progress Note Patient:??ÁLVARO ARVIZU O Provider:??aGston Martinez DNP :1955?Age:68 Y?Sex:Fe male Date:10/19/2023 Phone: Address:[address] [place] [address] Subjective: * Chief Complaints: * ?F/U LABS * HPI: ?Patient Care Team:?Founder:??[facility] in [place].?Functional Skills Tutor:??Jonathon Max MD.? Providers/Specialists: Trapeze Artist - Magalis Larsen ?COURT STENOGRAPHER- Dr. rKause. ?Visit info:? Álvaro presents today, via Telehealth, for f/u review of lab results. ?She notes she started taking supplement in March for Cholesterol - Annatto. * ROS:?all systems reviewed and are non-contributory unless specified in the HPI. * Medical History:?? * Last Dipper History:?Menstrual history: ?Age of Menarche:??12 ?Age of Menopause:??58 ?Abnormal pap smear??2021 - Did not get enough cells to really test. - Normal.?Last mammogram date??2021 Mammogram - Normal.?? * OB History:? History:?Total pregnancies:??2 ?Full-term pregnancies:??2 * Surgical History:??Cataract Surgery [id number]-Kfcklwc x 2 * Hospitalization/Major Diagno stic Procedure:?? * Family History:??Father: dec eased 60 yrs, Kidney Disease, Melanoma, Heart Disease.??Mother: alive, Breast CA.?? * Social History:?Migrated Social History:?Migrated Social History: Smoking Status:Never smoker, [SNOMED-CT:468005210],. ?Drugs/Alcohol:?Do you drink alcohol?: Yes, Socially. ?Lives in [place], [place] with . * Medications:??TakingMulti Fo r [...] hype rtension?LAB: THYROID PEROXIDASE AND THYROGLOBULIN ANTIBODIES (2560) ?LAB: THYROID PANEL WITH TSH (7444) ?LAB: LIPID PANEL WITH REFLEX TO DIRECT LDL (92596) ?LAB: COMPREHENSIVE METABOLIC PANEL (03151) ?LAB: URIC ACID (905) ?LAB: CBC (H/H, RBC, INDICES, WBC, PLT) (1759) ?LAB: HS CRP (84405) ?LAB: HEMOGLOBIN A1c (496) ?LAB: APOLIPOPROTEIN B (5224) ?LAB: INSULIN (561) ?LAB: VITAMIN D,25-OH,TOTAL,IA (51790) ?LAB: T3 REVERSE, LC/MS/MS (97540) Notes: Condition is stable and well controlled on current treatment. No changes made, medication(s) refilled as indicated? 3.??Elevated Lipoprotein(a)?LAB: THYROID PEROXIDASE AND THYROGLOBULIN ANTIBODIES (7260) ?LAB: THYROID PANEL WITH TSH (7444) ?LAB: LIPID PANEL WITH REFLEX TO DIRECT LDL (95948) ?LAB: COMPREHENSIVE METABOLIC PANEL (16783) ?LAB: URIC ACID (905) ?LAB: CBC (H/H, RBC, INDICES, WBC, PLT) (1759) ?LAB: HS CRP (52286) ?LAB: HEMOGLOBIN A1c (496) ?LAB: APOLIPOPROTEIN B (5224) ?LAB: INSULIN (561) ?LAB: VITAMIN D,25-OH,TOTAL,IA (48435) ?LAB: T3 REVERSE, LC/MS/MS (27429) Notes: see above? 4.??Systemic inflammatory re sponse syndrome (SIRS) of non-infectious origin without acute organ dysfunction?LAB: THYROID PEROXIDASE AND THYROGLOBULIN ANTIBODIES (7260) ?LAB: THYROID PANEL WITH TSH (7444) ?LAB: LIPID PANEL WITH REFLEX TO DIRECT LDL (64329) ?LAB: COMPREHENSIVE METABOLIC PANEL (36657) ?LAB: URIC ACID (905) ?LAB: CBC (H/H, RBC, INDICES, WBC, PLT) (1759) ?LAB: HS CRP (43860) ?LAB: HEMOGLOBIN A1c (496) ?LAB: APOLIPOPROTEIN B (5224) ?LAB: INSULIN (561) ?LAB: VITAMIN D,25-OH,TOTAL,IA (95079) ?LAB: T3 REVERSE, LC/MS/MS (47684) 5.??Always tired?LAB: THYROID PEROXIDASE AND THYROGLOBULIN ANTIBODIES (1946) ?LAB: THYROID PANEL WITH TSH (6265) ?LAB: LIPID PANEL WITH REFLEX TO DIRECT LDL (27251) ?LAB: COMPREHENSIVE METABOLIC PANEL (85072) ?LAB: URIC ACID (905) ?LAB: CBC (H/H, RBC, INDICES, WBC, PLT) (1759) ?LAB: HS CRP (55299) ?LAB: HEMOGLOBIN A1c (496) ?LAB: APOLIPOPROTEIN B (5224) ?LAB: INSULIN (561) ?LAB: VITAMIN D,25-OH,TOTAL,IA (44775) ?LAB: T3 REVERSE, LC/MS/MS (84149) 6.??Others?? Notes: Total time spent with patient [...] CPE * Billing Information: * Visit Code:?? 24242 Office Visit, Est Pt., Level 3. * Procedure Codes:?? * Sign off status: Completed true * Provider:??Gaston Martinez DNP Date:??0 10/19/2023 History and Physical Notes * HPI (History of Present Illness) Category Sub-Category Detail Notes Category Not es Patient Care Team Founder: [facility] [place] Providers/Speciali sts: Trapeze Artist - Magalis Larsen COURT STENOGRAPHER- Dr. Krause Functional Skills Tutor: Jonathon Max MD Physical Examination Category Sub-Category Detail Notes Section Note s GEN: NAD, speaking in full complete sentences, thoughts clear and appropriate RESP: nonlabored breathing, no audible SOB/Wheezing NEURO: AO x 3 PSYCH: judgment/insight intact, NL mood/affect
== END 2024-09-25 10:50 | disposition home or self-care (01) ==
LOC: HO.HOS 10:23
DX: S82.001A Unspecified fracture of right patella, initial encounter for closed fracture (principal)
CPT/HCPCS: 99213

== ENCOUNTER → 2024-09-25 10:25 | Outpatient (BNV) | payer MEDICARE, BC, SELFPAY | PROVIDERS: Visit Provider Radiology Diagnostic Radiology | DX: S82.001K Unspecified fracture of right patella, subsequent encounter for closed fracture with nonunion (principal) | CPT/HCPCS: 73560 ==

== ENCOUNTER 2024-11-10 10:00 | Outpatient (RCR) | payer MEDICARE, BC, SELFPAY ==
--- NOTE | 2024-09-01 14:58 | MHC.PT.EP ---
[facility] [place] Office [place] Office [place] Office [address] [phone] F: [phone] F: [phone] F: [phone] F: [phone] Physical Therapy Plan of Care Date of Evaluation: 09/01/24 Date of Surgery: Diagnosis: patellar fracture of R knee. Assessment: Patient is a 69 year old R handed female who presents with s/s consistent with R patellar fracture. 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 Patient past medical history includes HTN. Current impairments include pain, balance, ROM, strength, activity tolerance and functional mobility. Functional limitations include decreased ability to perform all weight bearing activities. Patient is motivated with good rehab potential. Skilled PT will address impairments and functional limitations in order to achieve goals. Frequency and Duration: The patient will be seen 2x/week for 5 weeks Short Term Goals: I with HEP - 2 weeks AAROM - 80 - 3 weeks quad set good - 3 weeks DF strength 4/5 - 3 weeks Skilled Nursing Goals: Amb with symmetrical gait pattenr - 5 weeks LEFS 55/80 - 5 weeks Strength 4+/5 grossly - 5 weeks Max pain 1/10 with ADLs - 5 weeks Symmetrical stair negotiation - 5 weeks SLB > 30 seconds - 5 weeks Treatment Plan: Modalities to reduce pain, spasms and effusion. Manual therapy to restore motion and function. Therapeutic exercise to improve strength and flexibility. Neuromuscular re-education for posture and balance. Therapeutic activities to return to functional activities of daily living. Electronically signed by: Frankie Donato, PT Please sign and return to therapist. Thank you for your referral.
--- NOTE | 2025-01-16 13:30 | MHC.PT.DC ---
[facility] [place] [facility] [place] [facility] [place] [facility] [address] Harjinder Dior [address] [phone] F: [phone] F: [phone] F: [phone] F: [phone] Physical Therapy Discharge Report Diagnosis: patellar fracture of R knee. Date of Surgery: Date of Evaluation: 09/01/24 Date of Discharge: 11/27/24 Treatments to Date: 9 Cancellations to Date: No Shows to Date: Discharge Status: Improved Function Independent with HEP Discharge Summary: 11/10/24: pt symmetrical gait. ROM goals and strength goals met. LEFS 58/80. Strength 4+/5 grossly. Max pain with ADLs 1/10 and mostly stiffness. she has progressed well over the course of skilled PT and is I with HEP. She is appropriate to d/c to HEP at this time. 10/20/24: ROM continues to progress. we are tapering to HEP. we will continue with 1 more visit until follow up with MD. 10/13/24: pt progressing well with skilled PT. ROM continues to progress. no adverse reactions. strength improving. balance improving. stair mechanics improving. improved control of descent on 8 10/05/24: ROM continues to improve. significant time spent educating on gait and stair mechanics. we will continue to progress as tolerated. 09/29/24: pt progressing well. ROM to 96. full ext. continue to progress as tolerated. progress gait as tolerated. pt tends to reduce knee flexion and toeing off, add circumduction. 09/22/24: pt progressing well with skilled PT. ROM progressing slowly. encouraged patient to progress 1-2 degrees per day. 09/14; Pt has good QS. Pt I with HEP. Knee no warm to the touch. Pt cont with brace locked at 0 until MD appt. 09/08/24: pt progressing with ROM. compliant with HEP. added hip strength. continue to progress as tolerated. Patient is a 69 year old R handed female who presents with s/s consistent with R patellar fracture. 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 Patient past medical history includes HTN. Current impairments include pain, balance, ROM, strength, activity tolerance and functional mobility. Functional limitations include decreased ability to perform all weight bearing activities. Patient is motivated with good rehab potential. Skilled PT will address impairments and functional limitations in order to achieve goals. Electronically signed by: Frankie Donato, PT Please sign and return to therapist. Thank you for your referral.
== END 2025-01-16 13:30 | disposition home or self-care (01) ==
LOC: HO.PTCHIC 10:00
PROVIDERS: PCP Nurse Practitioner Family
DX: S82.001D Unspecified fracture of right patella, subsequent encounter for closed fracture with routine healing (principal)
CPT/HCPCS: 97110; 97112; 97116; 97162

== ENCOUNTER 2024-11-13 07:31 | Outpatient (REF) | payer MEDICARE, BC, SELFPAY ==
--- NOTE | ~2024-11-13 | XR_ITS ---
EXAMINATION: XR KNEE 3 VIEWS RIGHT HISTORY: M17.11 - Unilateral primary osteoarthritis, right knee COMPARISON: Comparison is made with the prior examination dated 09/25/2024. FINDINGS: Standing AP views of both knees and additional lateral and sunrise patellar views of the right knee are submitted. Osseous mineralization is normal. The previously seen fracture of the patella is less well visualized, consistent with healing. The joint spaces are preserved. A curvilinear calcification is again noted adjacent to the medial femoral condyle which is likely related to the medial collateral ligament. There is a small joint effusion. XR/XR knee RT 3V IMPRESSION: Healing patellar fracture. Probable medial collateral ligament calcification without change. Small joint effusion. Electronically signed by: Naga Krause MD 11/13/2024 10:19 AM EDT
--- OUTSIDE RECORDS SUMMARY | 2024-11-13 07:33 | XMS_ITS | Patient Health Record ---
Author Organization [facility] Address [address] [facility] [place] [address] Care Team Providers Care Unix Architect Name Role Phone Chitra Martinez Primary Care Provider UnavailMagalis Bolton Unavailable [phone] Allergies No Known Allergies Reason For Referral [...] W/U Status Risk Notes Problem Plantar wart (01426832) Plantar wart (B07.0) Active confirmed Plan Of Treatment Pending Test Test Name Order Date 38341-Npgm Destruction, -09/16/2015 55440-Ctmc Destruction, -03/09/2018 68119-Sxmo Destruction, -03/30/2018 Insurance Providers Payer Name Payer Address Payer Phone Subscriber Number Group Number Insured Name Patient Relationship to Insured Coverage Start Date Coverage End Date Medicare [employer] [address] [place] [address] [id number] Trina Calles Self - patient is the insured [facility] [address] [place] [address] [id number] Trina Calles Self - patient is the insured Medical (General) History Medical History History ICD Code High blood pressure Chicken pox Basal cell carcinoma Surgical History Surgery Date(Month/Year) section 1986 catarac surgery both eyes 04/16, 07/18
== END 2024-11-13 07:32 | disposition home or self-care (01) ==
LOC: HO.HOSX 07:31
DX: M17.11 Unilateral primary osteoarthritis, right knee (principal); S82.001D Unspecified fracture of right patella, subsequent encounter for closed fracture with routine healing
CPT/HCPCS: 73562; 99212

== ENCOUNTER 2024-11-13 09:44 | Outpatient (AMB) | payer MEDICARE, BC, SELFPAY ==
[2024-11-13 09:52] VITALS: BMI 24.0
--- NOTE | 2024-11-13 09:52 | A.OFFVIS_ITS ---
Vital Signs 11/13/24 09:52 Height 5 ft 4 in Weight 140 lb BMI 24.0 Intake Visit Reasons: OV-Right Patella Fx DOI 07/01/24 Intake Note: Trina is a 69 year old female who presents today for a follow up of her right knee about 5.5 months s/p Right Patella Fracture 07/01/2024. At her last visit she was referred for Physical Therapy, states currently her knee pain has improved a nd is doing well. She has also improved her ROM and is happy with results. Allergies No Known Allergies Allergy (Verified 11/13/24 09:55) HPI HPI OV-Right Patella Fx DOI 07/01/24: Details: Trina is a 69 year old female who presents today for a follow up of her right knee about 5.5 months s/p Right Patella Fracture 07/01/2024. At her last visit she was referred for Physical Therapy, states currently her knee pain has improved and is doing well. Patient reports no pain at baseline, but does report a little bit of ?soreness? when she is done with physical therapy.. She has also improved her ROM and is happy with results. [facility] Social History Alcohol intake: current Alcohol intake frequency: holidays/special occasions only Patient Tobacco Use Status: Never used Tobacco Current occupational status: retired Review of Systems Const All systems reviewed & are unremarkable except as noted in HPI and below Physical Exam Vital Signs: BMI result Body Mass Index 24.0 Extrem Other: Patient's R knee not edematous to inspection No erythema, ecchymosis noted No lacerations, abrasions, open areas No evidence of infection Patient reports no tenderness to palpation of the patella No tenderness to palpation of the tibial tubercle, medial and lateral joint lines, or posterior knee Patient was able to flex the knee to approximately 120 degrees in the office today Patient is able to extend the right knee fully and without difficulty No palpable deformity of the patient's quadriceps tendon Distal sensation intact Capillary refill brisk Results Reviewed Results Reviewed: X-rays obtained in the office today and independently reviewed by me, Delroy Esteves PA-C, demonstrate well-healing nondisplaced fracture of the right patella. Assessment & Plan Assessment & Plan (1) Patellar fracture: Code(s): S82.009A - Unspecified fracture of unspecified patella, initial encounter for closed fracture Category: Medical Plan 1. Right patella fracture Date of injury 07/01/2024 Case was discussed with Dr. Lyons, who did not see the patient with me in clinic today, and a collaborative treatment plan was formed: At this time, patient was informed that she can continue to weight bear without being in extension, and should continue working range of motion of her right knee Patient was educated that she no longer requires bracing Patient was advised that she should continue with the exercises provided to her by physical therapy even though she has been discharged from visits Patient will follow-up as needed with any acute concerns Orders: Orders XR knee RT 3V Today M17.11 - Unilateral primary osteoarthritis, right knee Coding Level of Care Code Est Pt Level 3 (84818) Diagnoses Patellar fracture S82.009A
== END 2024-11-13 10:07 | disposition home or self-care (01) ==
LOC: HO.HOS 09:44
PROVIDERS: PCP Nurse Practitioner Family
DX: S82.001D Unspecified fracture of right patella, subsequent encounter for closed fracture with routine healing (principal)
CPT/HCPCS: 99213

== ENCOUNTER → 2024-11-13 09:46 | Outpatient (BNV) | payer MEDICARE, BC, SELFPAY | PROVIDERS: Visit Provider Radiology Diagnostic Radiology | DX: S82.001D Unspecified fracture of right patella, subsequent encounter for closed fracture with routine healing (principal); M25.461 Effusion, right knee | CPT/HCPCS: 73562 ==